=== PATIENT | female | born 1960 | race Caucasian/White ===

== ENCOUNTER 2017-08-14 10:43 | Inpatient (IN) | payer BC ==
[2017-08-14] VITALS (12 sets, daily range): BP systolic 88–133; BP diastolic 62–76; PULSE 73–97; RESP 16–24; TEMP 97.9–98.7; O2SAT 96–99
[~2017-08-14] VITALS: Ht 156.2 cm; Wt 54.5 kg
[2017-08-14] MEDS ORDERED: SODIUM CHLORIDE 0.9% FLUSH 10 ML FLUSH IVF PRN (11:15)
[2017-08-14] MEDS ORDERED: LORazepam 2 MG/ML VIAL IV PUSH ONE (11:15)
--- NOTE | 2017-08-14 11:24 | PD ---
HPI Chief Complaint: Cardiac Complaint Time Seen by Provider: 11:14 Travel History International Travel<30 days: No Contact w/Intl Traveler<30days: No Traveled to known affect area: No History of Present Illness HPI Patient is a 57-year-old female sent to emergency department presenting to the emergency department for evaluation of palpitations and increasing shortness of breath. Patient reports over the last 2 years she has had increasing shortness of breath, for the last several weeks she has had a gurgling sensation when she was lying down, she reports that she now gets short of breath even when brushing her teeth. She was sent by her primary doctor to cardiology for evaluation. 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 She was initially seen by Dr. Noriega in [place], she was referred to [place] to see Dr. Roxanne Grace. Patient currently denies any chest pain. Symptom onset was gradual, symptom severity is moderate to severe. There are no alleviating factors. Symptoms are exacerbated with activity. PFSH Past Medical History Depression: Yes High Cholesterol: Yes Diminished Hearing: No Insomnia: Yes Tetanus Vaccination: < 5 Years Influenza Vaccination: No ?: Not Past Surgical History Other Surgery: Yes (L knee ) Social History Alcohol Use: No Tobacco Use: No Substance Use: No Allergies-Medications (Allergen,Severity, Reaction): Coded Allergies: bacitracin (Verified Allergy, Mild, rash, 08/14/17) neomycin (Verified Allergy, Mild, rash, 08/14/17) polymyxin B (Verified Allergy, Mild, rash, 08/14/17) Review of Systems Except as stated in HPI: all other systems reviewed are Neg Cardiovascular: Positive: Palpitations, Dyspnea on exertion, No: Chest Pain or Discomfort Respiratory: Positive: Shortness of Breath Physical Exam Narrative GENERAL: Well-developed, well-nourished, alert female. Presenting in no acute distress. Appears anxious. SKIN: Warm and dry. HEAD: Atraumatic. Normocephalic. EYES: Pupils equal and round. No scleral icterus. No injection or drainage. ENT: No nasal bleeding or discharge. Mucous membranes pink and moist. NECK: Trachea midline. No JVD. CARDIOVASCULAR: Regular rate and rhythm. RESPIRATORY: No accessory muscle use. Clear to auscultation. Breath sounds equal bilaterally. GASTROINTESTINAL: Abdomen soft, non-tender, nondistended. Hepatic and splenic margins not palpable. MUSCULOSKELETAL: Extremities without clubbing, cyanosis, or edema. No obvious deformities. NEUROLOGICAL: Awake and alert. No obvious cranial nerve deficits. Motor grossly within normal limits. Five out of 5 muscle strength in the arms and legs. Normal speech. PSYCHIATRIC: Appropriate mood and affect; insight and judgment normal. Data Data Last Documented VS Vital Signs Date Time Temp Pulse Resp B/P (MAP) Pulse Ox O2 Delivery O2 Flow Rate FiO2 08/14/17 12:20 08/14/17 11:33 98 Nasal Cannula 2.00 08/14/17 11:30 73 18 08/14/17 10:50 98.6 Orders Orders Electrocardiogram (08/14/17 ) Electrocardiogram (08/14/17 11:14) B-Type Natriuretic Peptide (08/14/17 11:14) Ckmb (Isoenzyme) Profile (08/14/17 11:14) Complete Blood Count With Diff (08/14/17 11:14) Comprehensive Metabolic Panel (08/14/17 11:14) Magnesium (Mg) (08/14/17 11:14) Prothrombin Time / Inr (Pt) (08/14/17 11:14) Act Partial Throm Time (Ptt) (08/14/17 11:14) Troponin I (08/14/17 11:14) Chest, Single Ap (08/14/17 11:14) Ecg Monitoring (08/14/17 11:14) Bilateral Bp Monitoring (08/14/17 11:14) Iv Access Insert/Monitor (08/14/17 11:14) Oximetry (08/14/17 11:14) Oxygen Administration (08/14/17 11:14) Sodium Chloride 0.9% Flush (Ns Flush) (08/14/17 11:15) Lorazepam Inj (Ativan Inj) (08/14/17 11:15) Cardiac Catheterization (08/14/17 ) CKMB (08/14/17 11:05) CKMB% (08/14/17 11:05) Heparin-Ns/Pf Flush Bag (Heparin-Ns/Pf F (08/14/17 12:33) Midazolam Inj (Versed Inj) (08/14/17 12:33) Fentanyl Inj (Fentanyl Inj) (08/14/17 12:33) Verapamil Inj (Isoptin Inj) (08/14/17 12:34) Heparin Inj (Heparin Inj) (08/14/17 12:34) Nitroglycerin Inj (Nitroglycerin Inj) (08/14/17 12:34) Admit Order (Ed Use Only) (08/14/17 12:43) Labs Laboratory Tests Test 08/14/17 11:05 White Blood Count 6.3 TH/MM3 Red Blood Count 4.97 MIL/MM3 Hemoglobin 14.4 GM/DL Hematocrit 43.7 % Mean Corpuscular Volume 88.0 FL Mean Corpuscular Hemoglobin 29.0 PG Mean Corpuscular Hemoglobin Concent 33.0 % Red Cell Distribution Width 13.5 % Platelet Count 315 TH/MM3 Mean Platelet Volume 8.4 FL Neutrophils (%) (Auto) 52.8 % Lymphocytes (%) (Auto) 33.5 % Monocytes (%) (Auto) 10.9 % Eosinophils (%) (Auto) 2.2 % Basophils (%) (Auto) 0.6 % Neutrophils # (Auto) 3.3 TH/MM3 Lymphocytes # (Auto) 2.1 TH/MM3 Monocytes # (Auto) 0.7 TH/MM3 Eosinophils # (Auto) 0.1 TH/MM3 Basophils # (Auto) 0.0 TH/MM3 CBC Comment DIFF FINAL Differential Comment Prothrombin Time 9.7 SEC Prothromb Time International Ratio 1.0 RATIO Activated Partial Thromboplast Time 23.5 SEC Blood Urea Nitrogen 24 MG/DL Creatinine 0.90 MG/DL Random Glucose 99 MG/DL Total Protein 8.2 GM/DL Albumin 4.2 GM/DL Calcium Level 8.8 MG/DL Magnesium Level 2.4 MG/DL Alkaline Phosphatase 86 U/L Aspartate Amino Transf (AST/SGOT) 25 U/L Alanine Aminotransferase (ALT/SGPT) 27 U/L Total Bilirubin 0.4 MG/DL Sodium Level 141 MEQ/L Potassium Level 4.2 MEQ/L Chloride Level 103 MEQ/L Carbon Dioxide Level 26.9 MEQ/L Anion Gap 11 MEQ/L Estimat Glomerular Filtration Rate 64 ML/MIN Total Creatine Kinase 107 U/L Creatine Kinase MB 0.8 NG/ML Troponin I LESS THAN 0.02 NG/ML B-Type Natriuretic Peptide 123 PG/ML MDM Medical Decision Making Medical Screen Exam Complete: Yes Emergency Medical Condition: Yes Medical Record Reviewed: Yes Interpretation(s) Last Impressions Chest X-Ray 08/14/17 1114 Signed Impressions: Service Date/Time: July 11:19 - CONCLUSION: Minimal left basilar streakiness consistent with atelectasis and/or minimal infiltrate. Clinical correlation is recommended. Leoncio Ulloa MD Laboratory Tests Test 08/14/17 11:05 White Blood Count 6.3 TH/MM3 Red Blood Count 4.97 MIL/MM3 Hemoglobin 14.4 GM/DL Hematocrit 43.7 % Mean Corpuscular Volume 88.0 FL Mean Corpuscular Hemoglobin 29.0 PG Mean Corpuscular Hemoglobin Concent 33.0 % Red Cell Distribution Width 13.5 % Platelet Count 315 TH/MM3 Mean Platelet Volume 8.4 FL Neutrophils (%) (Auto) 52.8 % Lymphocytes (%) (Auto) 33.5 % Monocytes (%) (Auto) 10.9 % Eosinophils (%) (Auto) 2.2 % Basophils (%) (Auto) 0.6 % Neutrophils # (Auto) 3.3 TH/MM3 Lymphocytes # (Auto) 2.1 TH/MM3 Monocytes # (Auto) 0.7 TH/MM3 Eosinophils # (Auto) 0.1 TH/MM3 Basophils # (Auto) 0.0 TH/MM3 CBC Comment DIFF FINAL Differential Comment Prothrombin Time 9.7 SEC Prothromb Time International Ratio 1.0 RATIO Activated Partial Thromboplast Time 23.5 SEC Blood Urea Nitrogen 24 MG/DL Creatinine 0.90 MG/DL Random Glucose 99 MG/DL Total Protein 8.2 GM/DL Albumin 4.2 GM/DL Calcium Level 8.8 MG/DL Magnesium Level 2.4 MG/DL Alkaline Phosphatase 86 U/L Aspartate Amino Transf (AST/SGOT) 25 U/L Alanine Aminotransferase (ALT/SGPT) 27 U/L Total Bilirubin 0.4 MG/DL Sodium Level 141 MEQ/L Potassium Level 4.2 MEQ/L Chloride Level 103 MEQ/L Carbon Dioxide Level 26.9 MEQ/L Anion Gap 11 MEQ/L Estimat Glomerular Filtration Rate 64 ML/MIN Total Creatine Kinase 107 U/L Creatine Kinase MB 0.8 NG/ML Troponin I LESS THAN 0.02 NG/ML B-Type Natriuretic Peptide 123 PG/ML Vital Signs Date Time Temp Pulse Resp B/P (MAP) Pulse Ox O2 Delivery O2 Flow Rate FiO2 08/14/17 11:04 75 98 Room Air 08/14/17 10:50 98.6 79 17 133/76 (87) 99 Differential Diagnosis Myxoma versus congestive heart failure versus metabolic abnormality versus respiratory illness versus other Narrative Course Patient is a 57-year-old female presenting to the emergency department for evaluation of a large myxoma. Patient presents with medical records from her field artillery operations man Dr. Noriega. She had a 2D echo performed which shows ejection fraction of 60%. Mild mitral valve regurgitation, mildly elevated systolic pulmonary artery pressure, mild tricuspid valve regurgitation. Aortic valve sclerosis without stenosis. Mild aortic valve regurgitation. Left atrium has a myxoma measuring 5.5 x 5.3 x 4.2 which enters the left ventricle during diastole. Diastolic function appears normal. Discussed with Dr. Grace, patient will be kept n.p.o., she will be admitted to medicine. Labs and imaging ordered and pending. Initial EKG shows normal sinus rhythm with a rate of 72. Patient is very anxious, Ativan 0.5 mg IV 1 dose ordered. Patient was seen and evaluated in person by Dr. Grace, shortly thereafter patient was brought to the Computer Technologist. Labs reviewed, no acute findings identified. Chest x-ray shows basilar atelectasis. Findings discussed with Dr. Worrell who accepted admission. Admit orders placed. Diagnosis Primary Impression: Myxoma of heart Admitting Information Admitting Physician Requests: Admit Condition: Stable Sheri Knight Aug 14, 2017 11:24
[2017-08-14 11:51] LABS: AUTOMATED NEUTROPHIL # 3.3 TH/MM3 (1.8-7.7); BASOPHIL % 0.6 % (0.0-2.0); EOSINOPHIL # 0.1 TH/MM3 (0-0.4); EOSINOPHIL % 2.2 % (0.0-4.0); HEMATOCRIT 43.7 % (35.0-46.0); HEMOGLOBIN 14.4 GM/DL (11.6-15.3); LYMPH % 33.5 % (9.0-44.0); LYMPHOCYTE # 2.1 TH/MM3 (1.0-4.8); MEAN PLATELET VOLUME 8.4 FL (7.0-11.0); MONO % 10.9 % (0.0-8.0); MONOCYTE # 0.7 TH/MM3 (0-0.9); NEUT % 52.8 % (16.0-70.0); PLATELET COUNT 315 TH/MM3 (150-450); RED BLOOD COUNT 4.97 MIL/MM3 (4.00-5.30); RED CELL DISTRIBUTION WIDTH 13.5 % (11.6-17.2); WHITE BLOOD COUNT 6.3 TH/MM3 (4.0-11.0)
--- NOTE | 2017-08-14 11:59 | RADRPT ---
EXAM DATE/TIME: 08/14/2017 11:19 [facility] COMPARISON: No previous studies available for comparison. INDICATIONS : Short of breath MEDICAL HISTORY : SURGICAL HISTORY : None. ENCOUNTER: Initial ACUITY: 2 weeks PAIN SCORE: 0/10 LOCATION: Bilateral chest FINDINGS: Minimal left basilar streakiness is noted consistent with atelectasis and/or minimal infiltrate. Clin ical correlation is recommended. The heart is normal. The pulmonary vascular pattern is normal. CONCLUSION: Minimal left basilar streakiness consistent with atelectasis and/or minimal infiltrate. Clinical charity elation is recommended. Leoncio Ulloa MD on August 14, 2017 at 11:55 Board Certified Radiologist. This report was verified electronically.
[2017-08-14 12:00] LABS: PROTHROMBIN TIME - PATIENT 9.7 SEC (9.8-11.6)
[2017-08-14 12:15] LABS: ALBUMIN 4.2 GM/DL (3.4-5.0); ALT (GPT) 27 U/L (10-53); AST (GOT) 25 U/L (15-37); BICARBONATE 26.9 MEQ/L (21.0-32.0); BLOOD UREA NITROGEN 24 MG/DL (7-18); CALCIUM 8.8 MG/DL (8.5-10.1); CHLORIDE 103 MEQ/L (98-107); GLOMERULAR FILTRATION RATE 64 ML/MIN (>89); GLUCOSE,RANDOM 99 MG/DL (74-106); MAGNESIUM 2.4 MG/DL (1.5-2.5); SODIUM (NA) 141 MEQ/L (136-145)
[2017-08-14 12:19] LABS: ALKALINE PHOSPHATASE 86 U/L (45-117); TOTAL BILIRUBIN ADULT 0.4 MG/DL (0.2-1.0); TOTAL PROTEIN 8.2 GM/DL (6.4-8.2); TROPONIN I LESS THAN 0.02 NG/ML (0.02-0.05)
[2017-08-14] MEDS ORDERED: HEPARIN-NS/PF FLUSH BAG 2,000 ML IV FLUSH ONE (12:33)
[2017-08-14] MEDS ORDERED: MIDAZOLAM HCL 2 MG/2 ML VIAL ONE (12:33)
[2017-08-14] MEDS ORDERED: VERAPAMIL HCL 5 MG/2 ML VIAL ONE (12:34)
[2017-08-14] MEDS ORDERED: HEPARIN SODIUM - IV 10,000 UNITS/10 ML VIAL ONE (12:34)
[2017-08-14] MEDS ORDERED: NITROGLYCERIN INJ 5 ML ONE (12:34)
[2017-08-14] MEDS ORDERED: LACTULOSE SYRUP 20 GM/30 ML CUP PO PRN (12:45)
[2017-08-14] MEDS ORDERED: SODIUM CHLORIDE 0.9% FLUSH 10 ML FLUSH IV FLUSH PRN ×2 (12:45→16:15)
[2017-08-14] MEDS ORDERED: ACETAMINOPHEN 325 MG TAB PO PRN (12:45)
[2017-08-14] MEDS ORDERED: SENNOSIDES 8.6 MG TAB PO PRN (12:45)
[2017-08-14] MEDS ORDERED: ONDANSETRON HCL 4 MG/2 ML VIAL IVP PRN (12:45)
[2017-08-14] MEDS ORDERED: BISACODYL 10 MG SUPP RECTAL PRN (12:45)
[2017-08-14] MEDS ORDERED: NALOXONE HCL 0.4 MG/ML AMP IV PUSH PRN (12:45)
--- NOTE | 2017-08-14 12:52 | HHI.HP ---
[facility] Britney Pratt MD Admission Diagnosis MYXOMA Diagnoses: Chief Complaint: Shortness of breath Travel History International Travel<30 Days: No Contact w/Intl Traveler <30 Da: No Traveled to Known Affected Are: No History of Present Illness I have been called from ER by STRAIGHT RULING MACHINE OPERATOR due to that the patient was sent from [place] by Doctor Hari due to Cardiac Mixoma she started with Palpitations and increasing shortness of breath. Patient reports over the last 2 years she has had increasing shortness of breath, for the last several weeks she has had a gurgling sensation when she was lying down, she reports that she now gets short of breath even when brushing her teeth. She was sent by her primary doctor to cardiology for evaluation. 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 She was initially seen by Dr. Noriega in [place], she was referred to [place] to see Dr. Roxanne Grace. Patient currently denies any chest pain. Symptom onset was gradual, symptom severity is moderate to severe. There are no alleviating factors. Symptoms are exacerbated with activity. The patient is been symptomatic for the last two years, she though was related to the weather of deconditioning, but six months ago was worsening until the point three moths ago she was not able to handle small weights or walking, she was seen by PCP and then by Cardiology and sent today for evaluation and Cardiothoracic surgery. Doctor Hodge will perform Median Sternotomy, excision of left atrial Myxoma. scheduled for 08/18/17 Review of Systems Constitutional: DENIES: Fever, Chills, Change in appetite Endocrine: DENIES: Heat/cold intolerance Eyes: DENIES: Blurred vision, Eye pain Respiratory: COMPLAINS OF: Shortness of breath Except as stated in HPI: all other systems reviewed are Neg Past Family Social History Past Medical History Depression Hyperlipidemia Insomnia Past Surgical History Left knee surgery Reported Medications Reported Meds & Active Scripts Active Reported Rosuvastatin (Rosuvastatin Calcium) 5 Mg Tab 5 Mg PO DAILY Escitalopram (Escitalopram Oxalate) 5 Mg Tab 5 Mg PO DAILY Hydrocodone-Acetaminophen 5-325 mg Tab 1 Tab PO Q6H PRN Lasix (Furosemide) 20 Mg Tab 20 Mg PO DAILY Progesterone Micronized 100 Mg Cap 100 Mg PO DAILY Estrace (Estradiol) 1 Mg Tab 1 Mg PO DAILY Ambien (Zolpidem Tartrate) 5 Mg Tab 5 Mg PO HS PRN Aspirin DR (Aspirin) 81 Mg Tabdr 81 Mg PO DAILY Allergies: Coded Allergies: bacitracin (Verified Allergy, Mild, rash, 08/14/17) neomycin (Verified Allergy, Mild, rash, 08/14/17) polymyxin B (Verified Allergy, Mild, rash, 08/14/17) Active Ordered Medications Current Medications Medications (Trade) Dose Ordered Sig/Melody Route Start Time Stop Time Status Last Admin Sodium Chloride 1,000 ml @ 100 mls/hr Q10H IV 08/14/17 12:44 (NS Flush) 2 ml UNSCH PRN IV FLUSH 08/14/17 12:45 (NS Flush) 2 ml BID IV FLUSH 08/14/17 21:00 (Tylenol) 650 mg Q4H PRN PO 08/14/17 12:45 (Zofran Inj) 4 mg Q6H PRN IVP 08/14/17 12:45 (Narcan Inj) 0.4 mg UNSCH PRN IV PUSH 08/14/17 12:45 (Senokot) 17.2 mg Q12H PRN PO 08/14/17 12:45 (Dulcolax Supp) 10 mg DAILY PRN RECTAL 08/14/17 12:45 (Lactulose Liq) 30 ml DAILY PRN PO 08/14/17 12:45 (NS Flush) 2 ml BID IV FLUSH 08/14/17 21:00 UNV (NS Flush) 2 ml UNSCH PRN IV FLUSH 08/14/17 16:15 UNV Cefazolin Sodium 500 mg/Sodium Chloride 505 ml @ 0 mls/hr FLEET OPERATIONS MANAGER IRRIGATION 08/14/17 16:15 08/21/17 16:14 UNV Cefazolin Sodium/ Dextrose 50 ml @ 150 mls/hr FLEET OPERATIONS MANAGER IV 08/14/17 16:15 08/21/17 16:14 UNV (Lopressor) 12.5 mg FLEET OPERATIONS MANAGER PO 08/14/17 16:15 08/21/17 16:14 UNV (Hibiclens 4% Top Soln) 1 applic FLEET OPERATIONS MANAGER TOPICAL 08/14/17 16:15 08/21/17 16:14 UNV Insulin Human Regular 100 units/ Sodium Chloride 100 ml @ 3 mls/hr TITRATE PRN IV 08/14/17 16:15 08/21/17 16:14 UNV (D50w (Vial) Inj) 50 ml UNSCH PRN IV PUSH 08/14/17 16:15 UNV Family History Father with DM II, Mother with CAD and stroke. Social History No Toxic habits. Physical Exam Vital Signs Vital Signs Date Time Temp Pulse Resp B/P (MAP) Pulse Ox O2 Delivery O2 Flow Rate FiO2 08/14/17 12:20 08/14/17 11:33 98 Nasal Cannula 2.00 08/14/17 11:30 73 18 116/64 (81) 99 Room Air 08/14/17 11:30 74 18 116/64 (81) 99 Room Air 08/14/17 11:13 76 18 127/75 (92) 98 Room Air 08/14/17 11:13 75 24 127/75 (92) 99 Room Air 08/14/17 11:04 75 98 Room Air 08/14/17 10:50 98.6 79 17 133/76 (95) 99 Physical Exam GENERAL: Well-developed, well-nourished, alert female. Presenting in no acute distress. Appears anxious. SKIN: Warm and dry. HEAD: Atraumatic. Normocephalic. EYES: Pupils equal and round. No scleral icterus. No injection or drainage. ENT: No nasal bleeding or discharge. Mucous membranes pink and moist. NECK: Trachea midline. No JVD. CARDIOVASCULAR: Regular rate and rhythm. RESPIRATORY: No accessory muscle use. Clear to auscultation. Breath sounds equal bilaterally. GASTROINTESTINAL: Abdomen soft, non-tender, nondistended. Hepatic and splenic margins not palpable. MUSCULOSKELETAL: Extremities without clubbing, cyanosis, or edema. No obvious deformities. NEUROLOGICAL: Awake and alert. No obvious cranial nerve deficits. Motor grossly within normal limits. Five out of 5 muscle strength in the arms and legs. Normal speech. PSYCHIATRIC: Appropriate mood and affect; insight and judgment normal. Laboratory Laboratory Tests Test 08/14/17 11:05 White Blood Count 6.3 Red Blood Count 4.97 Hemoglobin 14.4 Hematocrit 43.7 Mean Corpuscular Volume 88.0 Mean Corpuscular Hemoglobin 29.0 Mean Corpuscular Hemoglobin Concent 33.0 Red Cell Distribution Width 13.5 Platelet Count 315 Mean Platelet Volume 8.4 Neutrophils (%) (Auto) 52.8 Lymphocytes (%) (Auto) 33.5 Monocytes (%) (Auto) 10.9 Eosinophils (%) (Auto) 2.2 Basophils (%) (Auto) 0.6 Neutrophils # (Auto) 3.3 Lymphocytes # (Auto) 2.1 Monocytes # (Auto) 0.7 Eosinophils # (Auto) 0.1 Basophils # (Auto) 0.0 CBC Comment DIFF FINAL Differential Comment Prothrombin Time 9.7 Prothromb Time International Ratio 1.0 Activated Partial Thromboplast Time 23.5 Blood Urea Nitrogen 24 Creatinine 0.90 Random Glucose 99 Total Protein 8.2 Albumin 4.2 Calcium Level 8.8 Magnesium Level 2.4 Alkaline Phosphatase 86 Aspartate Amino Transf (AST/SGOT) 25 Alanine Aminotransferase (ALT/SGPT) 27 Total Bilirubin 0.4 Sodium Level 141 Potassium Level 4.2 Chloride Level 103 Carbon Dioxide Level 26.9 Anion Gap 11 Estimat Glomerular Filtration Rate 64 Total Creatine Kinase 107 Creatine Kinase MB 0.8 Troponin I LESS THAN 0.02 B-Type Natriuretic Peptide 123 Result Diagram: 08/14/17 1105 08/14/17 1105 Imaging Last Impressions Chest X-Ray 08/14/17 1114 Signed Impressions: Service Date/Time: July 11:19 - CONCLUSION: Minimal left basilar streakiness consistent with atelectasis and/or minimal infiltrate. Clinical correlation is recommended. Leoncio Ulloa MD Caprini VTE Risk Assessment Caprini VTE Risk Assessment: Mod/High Risk (score >= 2) Caprini Risk Assessment Model Point Value = 1 Point Value = 2 Point Value = 3 Point Value = 5 Age 41-60 Minor surgery BMI > 25 kg/m2 Swollen legs Varicose veins or History of unexplained or recurrent spontaneous Oral contraceptives or hormone replacement Sepsis (< 1 month) Serious lung disease, including pneumonia (< 1 month) Abnormal pulmonary function Acute myocardial infarction Congestive heart failure (< 1 month) History of inflammatory bowel disease Medical patient at bed rest Age 61-74 Arthroscopic surgery Major open surgery (> 45 min) Laparoscopic surgery (> 45 min) Malignancy Confined to bed (> 72 hours) Immobilizing plaster cast Central venous access Age >= 75 History of VTE Family history of VTE Factor V Leiden Prothrombin [id number] Lupus anticoagulant Anticardiolipin antibodies Elevated serum homocysteine Heparin-induced thrombocytopenia Other congenital or acquired thrombophilia Stroke (< 1 month) Elective arthroplasty Hip, pelvis, or leg fracture Acute spinal cord injury (< 1 month) Prophylaxis Regimen Total Risk Factor Score Risk Level Prophylaxis Regimen 0-1 Low Early ambulation 2 Moderate Order ONE of the following: *Sequential Compression Device (SCD) *Heparin 5000 units SQ BID 3-4 Higher Order ONE of the following medications: *Heparin 5000 units SQ TID *Enoxaparin/Lovenox 40 mg SQ daily (WT < 150 kg, CrCl > 30 mL/min) *Enoxaparin/Lovenox 30 mg SQ daily (WT < 150 kg, CrCl > 10-29 mL/min) *Enoxaparin/Lovenox 30 mg SQ BID (WT < 150 kg, CrCl > 30 mL/min) AND/OR *Sequential Compression Device (SCD) 5 or more Highest Order ONE of the following medications: *Heparin 5000 units SQ TID (Preferred with Epidurals) *Enoxaparin/Lovenox 40 mg SQ daily (WT < 150 kg, CrCl > 30 mL/min) *Enoxaparin/Lovenox 30 mg SQ daily (WT < 150 kg, CrCl > 10-29 mL/min) *Enoxaparin/Lovenox 30 mg SQ BID (WT < 150 kg, CrCl > 30 mL/min) AND *Sequential Compression Device (SCD) Assessment and Plan Assessment and Plan Large Myxoma Patient presents with medical records from her order desk caller Dr. Noriega. She had a 2D echo performed which shows ejection fraction of 60%. Mild mitral valve regurgitation, mildly elevated systolic pulmonary artery pressure, mild tricuspid valve regurgitation. Aortic valve sclerosis without stenosis. Mild aortic valve regurgitation. Left atrium has a myxoma measuring 5.5 x 5.3 x 4.2 which enters the left ventricle during diastole. Diastolic function appears normal. evaluation and Cardiothoracic surgery. Doctor Naveen will perform Median Sternotomy, excision of left atrial Myxoma. scheduled for 08/18/17 Hyperlipidemia to continue Rosuvastatin Depression to continue escitalopram. Insomnia continue Zolpidem as needed. DVT prophylaxis as per Cardiology Code Status Full Code. Discussed Condition With Sheri Knight Physician Certification 2 Midnight Certification Type: Admission for Inpatient Services Order for Inpatient Services The services are ordered in accordance with Medicare regulations or non- Medicare payer requirements, as applicable. In the case of services not specified as inpatient-only, they are appropriately provided as inpatient services in accordance with the 2-midnight benchmark. Estimated LOS (days): 3 days is the estimated time the patient will need to remain in the hospital, assuming treatment plan goals are met and no additional complications. Post-Hospital Plan: Not yet determined Yury Morocho MD Aug 14, 2017 12:52
--- NOTE | 2017-08-14 13:57 | CATHPROC ---
[employer] HIS Report Study Information Study Number Admission Scheduled Start Study Start [id number] Aug 14 2017 10:43AM 08/14/2017 Aug 14 2017 12:12PM [place] [facility] Cardiac Catheterization Admit Source Facility Department Emergency department [facility] - Base Filler Operator Physician and Clinical Staff Initial Adam Hagen Doughnut Machine Operator Marty Cortes,PARI Recorder Nahed Ontiveros,CLAY PROCESSING LABOURER TECH2 Scrub Clarence Monzon RCIS(BS) Procedures Performed Procedure Location (Site) Vessel Name Coronary Angiograms LCA Left Coronary Coronary Angiograms RCA Right Coronary Wire insertion Radial (right) Radial Art. Equipment Time Neurophysiology Tech Description Size Mfg Part Number Used/Scraped CATHETER, FR5 SWAN HALEY 12:29 SHEPPARD Telormedix FR 5 [id number] *[id number] Used MONITOR TRANSDUCER, TRUWAVE [id number] 12:28 SHEPPARD RODGERS * Used W/STOCKCOCK *[id number] 534-518T *[id number] 534-521T *[id number] 12:28 Rentamus INDUSTRIES PACK, CCL CUSTOM * Used *[id number] BAND, RADIAL COMPRESSION TR [id number] 13:38 [employer]grazing MEDICAL 24CM Used SHORT 24 *[id number] 12:28 [employer] MEDICAL WIRE, 3MMJ .035 180CM 180CM Used *[id number] 12:28 NAMIC MANIFOLD, 4 PORT * Used *[id number] 12:28 NYCOMED OMNIPAQUE, 350 MG, 150ML 150ML [id number] Used [id number] 12:28 CHOU MEDICAL BLANKET,WARM AIR CCL * Used *[id number] 13:11 TERUMO MEDICAL SHEATH, FR5 TERUMO (10CM) FR 5 Used *[id number] 13:18 TERUMO MEDICAL SHEATH, FR6 TERUMO (10CM) FR 6 Used *[id number] SHEATH, FR6 TRANSRADIAL RM*[id number] 12:59 TERUMO MEDICAL FR 6 Used SLENDER 10CM *[id number] History: Allergies Allergy Reaction neomycin rash bacitracin rash polymyxin B rash History: Risk Factors Family History of Hypertension Dyslipidemia Previous IA Previous Heart Failure Premature CAD No Yes No No No Prior Valve Prior PCI Prior CABG Surgery No No No Cerebrovascular Peripheral Artery Chronic Lung On Dialysis Diabetes Disease Disease Disease No No No No No History: Symptoms/Diagnosis Selection Items SOB History: Stress Tests Stress or Imaging Studies Performed No History: Other Current Smoker No Labs Hgb (g/dl) Hct (%) RBC (MIL/MM3) WBC (l/cumm) Platelets (thousands) 11.60-17.00 35.00-51.00 4.00-5.90 4.00-11.00 150.00-450.00 14.4 43.7 4.9 6.3 315 Glucose (mg/dl) BUN (mg/dl) Creatinine (mg/dl) BUN:Creatinine (1:x) 74.00-106.00 7.00-18.00 0.50-1.30 10.00-20.00 99 24 0.9 26.7 Na (meq/l) K (meq/l) Cl (meq/l) CO2 (mmol/L) Ca (mg/dl) 136.00-145.00 3.50-5.10 98.00-107.00 21.00-32.00 8.50-10.10 141 4.2 103 26.9 8.8 PT (sec) PTT (sec) INR (PTT:PT) 9.80-11.60 24.30-30.10 0.90-1.10 9.7 23.5 1 Troponin I (ng/ml) CPK-MB (ng/ML) 0.02-0.05 0.50-3.60 0.02 0.8 Medication Medication Total Dose (Bolus/Oral) Medication Total Dosage/Unit 1% XYLOCAINE 40 mL FENTANYL 50 mcg RADIAL COCKTAIL 5 mL (Bolus) Medications (Bolus/Oral) Medication Time Given Dosage/Unit Administered By Reason FENTANYL 08/14/2017 12:55:08 PM 50 mcg Marty Cortes 50 mcg FENTANYL given in lab by Marty Cortes, RN in Right Forearm via Peripheral IV. Ordered by Adam Joseph 1% XYLOCAINE 08/14/2017 12:57:29 PM 10 mL Adam Grace 10 mL 1% XYLOCAINE given in lab by Adam Grace in Right Radial via Subcutaneous. Ordered by Adam Cox RADIAL COCKTAIL 08/14/2017 12:59:28 PM 5 mL (Bolus) Adam Grace 5 mL (Bolus) RADIAL COCKTAIL given in lab by Adam Grace via Radial. Using [Solution Name]. O rdered by Adam Grace. 200 nitro, 2200 heparin, .5 verapamil 1% XYLOCAINE 08/14/2017 1:02:02 PM 10 mL Adam Grace 10 mL 1% XYLOCAINE given in lab by Adam Grace in Right Arm via Subcutaneous. Ordered by Adam Love 1% XYLOCAINE 08/14/2017 1:12:34 PM 20 mL Adam Grace 20 mL 1% XYLOCAINE given in lab by Adam Grace in Right Groin via Subcutaneous. Ordered by Adam Schwartz Medication (Drip) Medication Time Given Dosage/Unit Concentration/Unit Diluent (ml) Solutio n IV Solutions 08/14/2017 12:29:23 PM 0 mL (IV) 500 NaCl .9 IV Solutions given in lab by Marty Cortes, PARI in Right Forearm via Peripheral IV. Pump/Drip Flow = 20 ml/hr using NaCl .9. Initial Case Assessment Cardiovascular HR Rhythm NIBP Chest Pain 80 Sinus 124/74 0 Edema Present Skin color Skin None Normal Warm Dry Circulatory - Right Pulses Dorsalis Pedis Femoral Radial 3 3 3 Scale (0,1,2,3,4,d) Circulatory - Left Pulses Dorsalis Pedis Femoral Radial 3 3 Scale (0,1,2,3,4,d) Neurological State Oriented to time-place- Alert Moves all extremities person Respiration - General Respiration Rate SpO2 (%) O2 (lpm) (B/min) 17 97 0 Final Case Assessment Cardiovascular HR Rhythm NIBP Chest Pain 79 Sinus 112/64 0 Edema Present Skin color Skin None Normal Warm Dry Circulatory - Right Pulses Dorsalis Pedis Femoral Radial 3 3 3 Scale (0,1,2,3,4,d) Circulatory - Left Pulses Dorsalis Pedis Femoral Radial 3 3 Scale (0,1,2,3,4,d) Neurological State Oriented to time-place- Alert Moves all extremities person Respiration - General Respiration Rate SpO2 (%) O2 (lpm) (B/min) 15 95 0 Chronological Log Time Study Chronological Log 12:24:44 Patient arrived via Bed. 12:24:49 Patient Name, D.O.B, / Armband Verified By R.N. 12:24:50 Consent signed by the physician and the patient and verified by the Base Filler Operator staff. 12:24:50 Pre-op and post- op instructions given; patient acknowledges understanding of instructions. 12:24:51 Verbal Stimulation=2 Physical Stimulation=2 Airway=2 Respiration=2 TOTAL=8. (0=absent, 1=li mited, 2=present) 12:25:00 Presedation assessment performed by Base Filler Operator RN. 12:25:03 Allens test performed on the right radial and ulnar artery. 12:25:20 Patient has been NPO for Less than 6Hrs. 12:25:55 Skin Breakdown- none per patient. 12:26:00 Patient Warmer Placed on the Table. 12:26:01 [place] Prominences Protected 12:26:03 A # 20 IV was noted in the Forearm (right). Grade = 0 Vitals capture started with the following parameters, Patient=Adult, Interval=5 min, Initial Pr glzjtl=691 mmHg, 12:29:12 Deflation Rate=5 mmHg, Cuff placed on Left Leg IV Solutions given in lab by Marty Cortes RN in Right Forearm via Peripheral IV. Pump/Drip F low = 20 ml/hr using NaCl 12:29:23 .9. 12:29:46 History and physical on the chart or being dictated. Assessment: Initial Case, HR=80 BPM, Rhythm=Sinus, MXUJ=559/74 mmhg, Chest Pain=0, Edema=None, Color=Normal, Skin = Warm, Dry Right Pulses: Willam Ped=3, Femoral=3, Radial=3 12:29:47 Left Pulses: Willam Ped=3, Femoral=3 Neurological: State=Alert, Ox3, FLANNERY Respiration: Resp=17 B/min, SpO2=97 %, O2=0 lpm 12:29:55 HR=84 bpm, GPAM=632/74 mmhg, Resp=15 B/min, Pain=0, Pernell=10, Conway=2 12:30:54 Reference ECG taken 12:34:48 HR=71 bpm, DIGB=749/66 mmhg, SpO2=97.0 %, Resp=15 B/min, Pain=0, Pernell=10, Conway=2 12:39:47 HR=75 bpm, SZBQ=735/70 mmhg, SpO2=98.0 %, Resp=16 B/min, Pain=0, Pernell=10, Conway=2 12:44:48 HR=77 bpm, MJYE=206/67 mmhg, SpO2=98.0 %, Resp=16 B/min, Pain=0, Pernell=10, Conway=2 12:49:05 Pressure channel 1 zeroed. 12:49:49 HR=74 bpm, HHDB=587/59 mmhg, SpO2=98.0 %, Resp=17 B/min, Pain=0, Pernell=10, Conway=2 12:54:48 HR=72 bpm, VKLX=417/66 mmhg, SpO2=99.0 %, Resp=15 B/min, Pain=0, Pernell=10, Conway=2 12:55:08 50 mcg FENTANYL given in lab by Marty Cortes, PARI in Right Forearm via Peripheral IV. Orde red by Adam Grace. Time Out. Correct patient, correct procedure, correct physician, power injector loaded, or not loaded with contrast with 12:55:47 surgical team present. Time Out Concurred by MD and individual staff in procedure. 12:56:05 Case Start 10 mL 1% XYLOCAINE given in lab by Adam Grace in Right Radial via Subcutaneous. Ordere d by Sanjay, 12:57:29 Adam Hernandes 12:58:46 Access site was Radial Artery. A SHEATH, FR6 TRANSRADIAL SLENDER 10CM FR 6 was advanced into the Radial (right) using the Kim fied Seldinger 12:58:54 technique. 5 mL (Bolus) RADIAL COCKTAIL given in lab by Adam Grace via Radial. Using [Solution Na me]. Ordered by 12:59:28 Adam Grace 200 nitro, 2200 heparin, .5 verapamil 12:59:47 HR=92 bpm, DRPC=677/62 mmhg, SpO2=97 %, Resp=10 B/min, Pain=0, Pernell=10, Conway=2 10 mL 1% XYLOCAINE given in lab by Adam Grace in Right Arm via Subcutaneous. Ordered madonna Grace, 13:02:02 Adam Hernandes 13:04:48 HR=84 bpm, JKMJ=225/62 mmhg, SpO2=92.0 %, Resp=13 B/min, Pain=0, Pernell=10, Conway=2 13:09:47 HR=85 bpm, CMJD=058/63 mmhg, SpO2=94 %, Resp=13 B/min, Pain=0, Pernell=10, Conway=2 20 mL 1% XYLOCAINE given in lab by Adam Grace in Right Groin via Subcutaneous. Ordered by Sanjay, 13:12:34 Adam Workman. 13:14:48 HR=80 bpm, VFBY=185/66 mmhg, SpO2=95.0 %, Resp=17 B/min, Pain=0, Pernell=10, Conway=2 13:15:44 Access site was Right Femoral Vein. 13:16:36 A SHEATH, FR5 TERUMO (10CM) FR 5 was advanced into the Fem Vein (right) using the Modified Seldinger technique. A SHEATH, FR6 TERUMO (10CM) FR 6 was exchanged in the Fem Vein (right). This was necessary in o rder to 13:17:42 accomodate a larger catheter. 13:18:14 A CATHETER, FR5 SWAN HALEY MONITOR FR 5 was inserted via Fem Vein (right) 13:19:51 HR=80 bpm, VOPH=504/66 mmhg, SpO2=97.0 %, Resp=17 B/min, Pain=0, Pernell=10, Conway=2 Recorded Pressure: PCW, HR=82, Condition=Condition 1 13:21:07 (Pulmonary Capillary Wedge) PCW 37/36/36 Recorded Pressure: MPA, HR=79, Condition=Condition 1 13:22:57 (Main Pulmonary Artery) MPA 54/18/34 13:24:48 HR=76 bpm, VXJI=202/66 mmhg, SpO2=96 %, Resp=15 B/min, Pain=0, Pernell=10, Conway=2 13:24:53 Saturation: Site=Ao (Aorta) , O2=96.2 %, Hgb=14.4 gm/dl, Condition=Condition 1. Used in [facility] culation. Recorded Pressure: RV, HR=79, Condition=Condition 1 13:25:05 (Right Ventricle) RV 50/1/5 13:27:42 Saturation: Site=RV (Right Ventricle) , O2=80.6 %, Hgb=14.4 gm/dl, Condition=Condition 1. U sed in calculation. Recorded Pressure: RA, HR=76, Condition=Condition 1 13:27:51 (Right Atrium) RA 5/3/2 13:28:40 Saturation: Site=PA (Pulmonary Artery) , O2=79 %, Hgb=14.4 gm/dl, Condition=Condition 1. Us ed in calculation. 13:28:59 Saturation: Site=RA (Right Atrium) , O2=75.9 %, Hgb=14.4 gm/dl, Condition=Condition 1. Used in calculation. 13:29:50 HR=77 bpm, OGMS=923/66 mmhg, SpO2=99.0 %, Resp=16 B/min, Pain=0, Pernell=10, Conway=2 13:29:52 [place] Haley Catheter Removed Recorded Pressure: LV, HR=79, Condition=Condition 1 13:30:03 (Left Ventricle) LV 112/3/7 Recorded Pressure: LV, Ao, HR=79, Condition=Condition 1 13:30:17 (Left Ventricle) LV 111/0/8, (Aorta) Ao 107/59/80 13:32:11 The RCA was injected and visualized at various angles. OMNIPAQUE, 350 MG, 150ML 150ML used . After removing the current catheter a JL 3.5 INFINITI CATHETER FR 5 was advanced over a WIRE, 3 MMJ .035 180CM 13:32:19 180CM. Recorded Pressure: Ao, HR=79, Condition=Condition 1 13:33:41 (Aorta) Ao 97/57/73 13:34:25 The LCA was injected and visualized at various angles. OMNIPAQUE, 350 MG, 150ML 150ML used . 13:34:38 A WIRE, 3MMJ .035 180CM 180CM was inserted via Radial (right). 13:34:53 HR=88 bpm, ZDVK=594/65 mmhg, SpO2=97.0 %, Resp=19 B/min, Pain=0, Pernell=10, Conway=2 13:34:56 Catheter was removed 13:35:33 Case End 13:36:42 Catheter(s) removed without difficulty Radial Compression Device Used. 12 mLs of air placed in BAND, RADIAL COMPRESSION TR SHORT 24 24 CM. Affected 13:37:34 hand 96 % O2 saturation. 13:37:56 No case complications noted. 13:37:57 Cine recording checked. 13:38:00 Bedside Report will be given. 13:38:06 A Left and Right Heart Cath was performed. 13:39:50 HR=79 bpm, LYWF=374/64 mmhg, SpO2=95 %, Resp=15 B/min, Pain=0, Pernell=10, Conway=2 13:41:17 VENOUS Sheath removed; pressure applied to access site. Assessment: Final Case, HR=79 BPM, Rhythm=Sinus, HURP=437/64 mmhg, Chest Pain=0, Edema=None, Color=Normal, Skin = Warm, Dry Right Pulses: Willam Ped=3, Femoral=3, Radial=3 13:49:54 Left Pulses: Willam Ped=3, Femoral=3 Neurological: State=Alert, Ox3, FLANNERY Respiration: Resp=15 B/min, SpO2=95 %, O2=0 lpm 13:53:39 Sterile dressing applied to site 13:53:40 No case complications noted. 13:53:42 Cine recording checked. 13:57:13 Patient moved to [facility] End Study - Contrast Media Used In Study Contrast Total Opened (mL) Total Used (mL) Total Wasted (mL) Omnipaque 40 40 0 End Study - Maximum Contrast Load Max Contrast Load (mL) 311.1 End Study - Radiation Exposure Fluoro Time (minutes) 2.7 End Study - Patient Disposition Complications Transferred To Telemetry Bed
[2017-08-14] MEDS ORDERED: MISC INFORMATION XX ONE ×2 (14:00)
[2017-08-14] MEDS ORDERED: IOHEXOL 350 MG/ML 50 ML BTL (for Cath Lab) OTHER ONE (14:03)
[2017-08-14] MEDS ORDERED: ECASA81 PO (15:06)
[2017-08-14] MEDS ORDERED: ESCI5TAB PO (15:14)
[2017-08-14] MEDS ORDERED: FURO1TAB62 PO (15:14)
[2017-08-14] MEDS ORDERED: ESTR1 PO (15:14)
[2017-08-14] MEDS ORDERED: AMBI5TAB PO (15:14)
[2017-08-14] MEDS ORDERED: ROSU1TAB4 PO (15:14)
[2017-08-14] MEDS ORDERED: HYDR-3516 PO (15:14)
[2017-08-14] MEDS ORDERED: PROG100C PO (15:14)
[2017-08-14] MEDS ORDERED: METOPROLOL TARTRATE 25 MG TAB PO SCH (16:15)
[2017-08-14] MEDS ORDERED: DEXTROSE 50% IN WATER 50 ML VIAL(D50) IV PUSH PRN (16:15)
[2017-08-14] MEDS ORDERED: INSULIN REGULAR (IV INFUSION) 100 UNITS in SODIUM CHLORIDE 0.9% INJ 99 ML IV PRN (16:15)
[2017-08-14] MEDS ORDERED: CHLORHEXIDINE GLUCONATE 4% SOLN 120 ML BTL TOPICAL SCH (16:15)
[2017-08-14] MEDS ORDERED: CEFAZOLIN INJ 500 MG in SODIUM CHLORIDE 0.9% IRR BTL 500 ML IRRIGATION SCH (16:15)
--- NOTE | 2017-08-14 17:14 | MB ---
cc: Ann Shepard Jacqueline R ARNP DATE OF CONSULT: 08/14/2017 HISTORY OF PRESENT ILLNESS: This is a 57-year-old very pleasant female who was referred to Dr. Grace from Dr. Adria Noriega. Apparently, has been having some shortness of breath off and on for the past 2 years, increasing over the last 6 months and becoming more noticeable in the past couple weeks. 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 She has also noticed some gurgling in her chest. She has had a mild cough, occasional wheeze. No fevers or chills. She underwent an echocardiogram by Dr. Noriega which showed a myxoma measuring 5 x 5 x 5.3 x 4 x 2, enters the left ventricle during diastole and arises from the intraarterial septum. There was also some mild aortic regurgitation, mild mitral regurgitation, mild tricuspid regurgitation, ejection fraction of 60%. The patient was then referred to our Emergency Department for admission and evaluation by Dr. Grace. The patient underwent cardiac catheterization today, which showed nonobstructive coronary disease, ejection fraction of 60%, right atrial pressures of 3, PA pressure 54/18, wedge pressure 36. 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 PAST MEDICAL HISTORY: Hyperlipidemia, diverticulosis, colon polyp, actinic keratosis, anxiety, insomnia. She has had history of some mild spinal stenosis, radiculopathy, macular degeneration. She has had left knee arthroscopic surgery. ALLERGIES: BACITRACIN, NEOMYCIN, POLYMYXIN. FAMILY HISTORY: Mother from diabetes and a stroke, father from a subarachnoid hemorrhage. 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 No tobacco or alcohol. She walks on a regular basis. REVIEW OF SYSTEMS: All 12 systems negative other than what is in the H and P. PHYSICAL EXAMINATION: VITAL SIGNS: Blood pressure 116/60, heart rate of 70, O2 saturation 99 on room air, afebrile. GENERAL: The patient is awake, alert, in no acute distress. HEENT: Head is normocephalic, atraumatic. Pupils equal and reactive. Oral mucosa pink, moist. NECK: Supple. No JVD. HEART: Sounds S1, S2. Regular rate and rhythm. No audible rubs. Positive for a 2/6 systolic murmur. No rubs or gallops. LUNGS: Clear to auscultation. No wheezes, rales or rhonchi. ABDOMEN: Soft, nontender, no masses. No organomegaly. EXTREMITIES: No cyanosis, clubbing, or edema. LABORATORY DATA: Shows hemoglobin 14, hematocrit of 43, white cell count of 6.3, platelet count of 315. Sodium 141, potassium 4.2, BUN of 24, creatinine 0.9. Troponin is negative. INR 1.0. IMAGING STUDIES: Chest x-ray - minimal left basal streakiness consistent with some atelectasis. ASSESSMENT AND PLAN: This is a 57-year-old female, patient of Dr. Britney Pratt, Dr. Adria Noreiga, Dr. Grace, who underwent an echocardiogram for her dyspnea, which showed a sizable left atrial myxoma. She is being evaluated by Dr. Hodge for a median sternotomy, excision of left atrial myxoma, and this is scheduled for Friday, the . Procedures, alternatives and risks have been discussed. The patient is agreeable to proceed. MICHELLE Adler MD JRT//benigno , 04:16 PM , 04:45 PM
[2017-08-14] MEDS ORDERED: PILL SPLITTER OTHER PRN (17:45)
[2017-08-14 19:09] LABS: HEMOGLOBIN A1C 5.8 % (4.3-6.0)
[2017-08-14 20:57] LABS: BILIRUBIN, URINE NEG (NEG); BLOOD, URINE TRACE (NEG); GLUCOSE,URINE NEG (NEG); KETONE, URINE NEG (NEG); NITRITE,URINE NEG (NEG); PH, URINE 6.5 (5.0-8.5); SQUAMOUS EPITHELIAL CELL URINE 1 /hpf (0-5); URINE COLOR YELLOW (YELLW/STRAW); URINE LEUKOCYTE ESTERASE NEG (NEG)
[2017-08-14] MEDS ORDERED: SODIUM CHLORIDE 0.9% FLUSH 10 ML FLUSH IV FLUSH SCH (21:00)
[2017-08-14] MEDS ORDERED: PROG200C PO (21:51)
[2017-08-14] MEDS ORDERED: ACETAMINOPHEN/HYDROcodone 325 MG/5 MG TAB PO ONE (22:00)
--- NOTE | 2017-08-14 22:47 | RADRPT ---
EXAM DATE/TIME: 08/14/2017 21:21 [place] COMPARISON: No previous studies available for comparison. INDICATIONS : Pre-op cardiac surgery. MEDICAL HISTORY : Hypercholesterolemia. SURGICAL HISTORY : Left knee surgery. ENCOUNTER: Initial ACUITY: 1 day PAIN SCORE: 0/10 LOCATION: Bilateral neck PEAK SYSTOLIC VELOCITIES (cm/sec): ICA/CCA RATIO: Right: 1.4 Left: 1.3 ICA: Right: 114 Left: 118 CCA: Right: 79 Left: 90 ECA: Right: 73 Left: 80 VERTEBRAL: Right: 72 antegrade Left: 28 antegrade Elevated flow velocities and ICA/CCA ratios have been found to correlate with increased degrees of vessel stenosis, calculated as percentage of diameter relative to a normal segment of distal ICA/CCA FINDINGS: RIGHT CAROTID: No significant stenosis is visualized. The waveforms are within normal limits. LEFT CAROTID: No significant stenosis is visualized. The waveforms are within normal limits. VERTEBRAL ARTERIES: Antegrade flow is seen in both vertebral arteries. MISCELLANEOUS: None. CONCLUSION: Within normal limits. No significant carotid plaque or narrowing on either side. Javier Barrera MD on August 14, 2017 at 22:44 Board Certified Radiologist. This report was verified electronically.
[2017-08-14] MEDS: ZOLPIDEM TARTRATE 5 MG TAB PO PRN (23:03)
[2017-08-14] MEDS: SODIUM CHLORIDE 0.9% FLUSH 10 ML FLUSH IV FLUSH SCH (23:04)
[2017-08-15] VITALS (24 sets, daily range): BP systolic 85–115; BP diastolic 50–79; PULSE 67–92; RESP 14–18; TEMP 97.7–99; O2SAT 95–97
--- NOTE | 2017-08-15 00:37 | MB ---
cc: Adam Grace DO DATE OF CONSULT: REASON FOR CONSULTATION: Left atrial myxoma. HISTORY OF PRESENT ILLNESS: Connie Gardiner is a pleasant 57-year-old female who presented to [facility] Emergency Room due to shortness of breath. She was seeing her sports complex attendant, Dr. Nicola Noriega and he did an echocardiogram which showed a left atrial myxoma which measured 5 x 5 x 5.3. It arises from the interatrial septum and there was a concern that it was entering the left ventricle during diastole. He evaluated the patient and there was a concern for shortness of breath that was significant with very little activity and he felt like this needed to be taken care of urgently and so he sent her into the emergency room. Dr. Noriega called me about the patient so that I could evaluate her and plan for cardiac catheterization. In seeing her, she denies chest pain but states that she gets significant shortness of breath with very little activities around the house. PAST MEDICAL HISTORY: 1. Hyperlipidemia. 2. Diverticulosis. 3. Anxiety. 4. Insomnia. 5. Mild spinal stenosis. PAST SURGICAL HISTORY: Left knee arthroscopic surgery. ALLERGIES: 1. BACITRACIN. 2. NEOMYCIN. 3. POLYMYXIN. MEDICATIONS: 1. Crestor 5 mg daily. 2. Aspirin 81 mg daily. 3. Hydrocodone/acetaminophen 5/325 every 6 hours as needed for pain. 4. Lexapro 5 mg daily. 5. Ambien 5 mg every night as needed for insomnia. 6. Lasix 20 mg daily. 7. Estrace 1 mg daily. 8. Progesterone 100 mg daily and 200 mg at night. FAMILY HISTORY: Mother from diabetes and a stroke. Father had a subarachnoid hemorrhage. 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 Denies tobacco or alcohol. REVIEW OF SYSTEMS: Fourteen systems were reviewed including osteopathic. Pertinent positives and negatives above, otherwise negative. PHYSICAL EXAMINATION: VITAL SIGNS: Temperature 98.6, heart rate 79, blood pressure 133/76, respirations 17, pulse oximetry 99% on room air. GENERAL: The patient appears well, no acute distress. Alert, awake and oriented x 3. HEENT: Extraocular muscles intact. Mucous membranes moist. NECK: Supple. No JVD at 45 degrees. No carotid bruits heard bilaterally. Carotid upstroke is brisk in nature. HEART: Regular rate and rhythm. Positive first and second heart sounds with a II/ diastolic murmur noted at the apex. LUNGS: Decreased breath sounds bilaterally but no overt wheezes, rales or rhonchi. ABDOMEN: Soft, nontender, nondistended. No organomegaly noted. EXTREMITIES: Show no clubbing, cyanosis or edema. Femoral and distal pulses intact bilaterally. NEUROLOGIC: No focal deficits. SKIN: Warm, dry and intact. OSTEOPATHIC: No kyphoscoliosis, lordosis or paraspinal tender points. LABORATORY DATA: Hemoglobin 14.4, hematocrit 43.7, platelets 315. Potassium 4.2, BUN 24, creatinine 0.9. Troponin less than 0.02. BNP 123. Electrocardiogram (08/14/2017 at 11:11) sinus rhythm, baseline artifact, no acute ST-T wave changes. IMPRESSION: 1. Left atrial myxoma by echocardiogram arising from the interatrial septum measuring 5 x 5 x 5.3. 2. Significant shortness of breath secondary to left atrial myxoma causing obstructive pathology. 3. History of hyperlipidemia. 4. Anxiety. RECOMMENDATIONS: 1. Ms. Gardiner appears to have significant shortness of breath with very little activity and this is most likely due to her left atrial myxoma causing an obstructive pathology. 2. Because of this, she will undergo right and left heart catheterization in anticipation of surgery. 3. She is currently not short of breath at rest and does not appear to be in acute heart failure and so I would hold off on diuresing her at this time as we need to keep her from getting dehydrated. 4. After cardiac catheterization, I will discuss with CT surgery about consideration of inpatient surgery as she has significant shortness of breath with very little activity. Thank you for allowing me to see Connie Gardiner. If there are any questions, please do not hesitate to call. Adam Grace, DO VGP/rt , 11:22 PM , 12:36 AM
--- NOTE | 2017-08-15 01:08 | MA ---
cc: Adam Grace DO 08/14/2017 PROCEDURE: Left heart catheterization, right heart catheterization, coronary angiogram. PREPROCEDURE DIAGNOSIS: Acute congestive heart failure secondary to left atrial myxoma. POSTPROCEDURE DIAGNOSIS: No significant coronary artery disease, mild pulmonary hypertension secondary to elevated left atrial pressures. MEDICATIONS: Fentanyl 50 mcg, nitro 200 mcg, verapamil 2.5 mg, heparin 2200 units. CONTRAST USED: 40 mL. FLUOROSCOPY: 2.7 minutes. MODERATE SEDATION: 0 minutes. ESTIMATED BLOOD LOSS: 10 mL PROCEDURAL SUMMARY: Connie Gardiner is a pleasant 57-year-old female who sees Dr. Noriega and was found to have a left atrial myxoma. She has significant shortness of breath with little activity and this is most likely due to obstructive pathology due to this. Because of this, she was recommended cardiac catheterization in consideration of possible surgery in the near future. Risks, benefits and alternatives were explained to her and she consented as such. She was brought to the lab and prepped in the usual sterile fashion. The right radial artery was accessed using a modified Seldinger technique and placement of a 5/6 Australian Slender sheath. I attempted to place a brachial vein sheath with ultrasound guidance, but was unable to and so right femoral vein was accessed using a modified Seldinger technique and placement of a 5-Australian sheath. This was easily aspirated and flushed. A [place] catheter was advanced to a wedge position and oxygen saturations as well as pressures were done on the standard fashion upon pullback throughout the heart. [place] catheter was removed. A JR4 was advanced over a J-wire to the ascending aorta and across the aortic valve for measurement of left ventricular pressure. This was pulled back across the aortic valve showing no significant gradient of aortic stenosis. JR4 was used for selective angiography of the right coronary artery system. This is exchanged out for a JL3.5, which was used for selective angiography of the left coronary artery system. JL3.5 was removed over a J wire. Radial band was placed over the arteriotomy site for hemostasis. Femoral venous sheath was pulled and pressure held for hemostasis. The patient left the laboratory aide cardiovascularly stable. FINDINGS: LEFT MAIN: Normal size vessel with adequate reflux. It bifurcates into an LAD and circumflex. LEFT ANTERIOR DESCENDING: Normal sized vessel with mild luminal irregularities throughout the mid portion and some tortuosity, but no significant disease. It gives off 2 major diagonals with no significant disease. LEFT CIRCUMFLEX: Normal size vessel with no significant disease. It gives off 2 major obtuse marginals with no significant disease. RIGHT CORONARY ARTERY: Normal size vessel with no significant disease. Overall, it is a dominant vessel and supplies the PDA. HEMODYNAMICS: RA 3. RV 50/1. RVEDP 5. PA 54/18, mean 34. Wedge 36. LVEDP 8. IMPRESSION: 1. Left atrial myxoma causing obstructive pathology. 2. Congestive heart failure secondary to left atrial myxoma. 3. No significant coronary artery disease. 4. Mild pulmonary hypertension, type 2. RECOMMENDATIONS: 1. Ms. Gardiner appears to have no significant coronary artery disease. 2. She will be recommended evaluation by CT surgery for consideration of a left atrial myxoma removal. 3. Overall, as she has significant shortness of breath with minimal activity, I feel that she should stay inpatient and have this done and this was discussed with her as well as CT surgery. 4. As she is currently stable, in no acute heart failure, I would avoid diuresing her, as I do not want to make her dehydrated at this time. Further recommendations will be made based on the hospital course. Thank you for allowing me to see Connie Gardiner. If there are any questions, please do not hesitate to call. Adam Grace, VGP/rt , 12:24 AM , 01:07 AM
[2017-08-15 05:58] LABS: AUTOMATED NEUTROPHIL # 2.2 TH/MM3 (1.8-7.7); BASOPHIL % 0.7 % (0.0-2.0); EOSINOPHIL # 0.1 TH/MM3 (0-0.4); EOSINOPHIL % 2.7 % (0.0-4.0); HEMATOCRIT 40.4 % (35.0-46.0); HEMOGLOBIN 13.3 GM/DL (11.6-15.3); LYMPH % 39.5 % (9.0-44.0); LYMPHOCYTE # 1.8 TH/MM3 (1.0-4.8); MEAN CELL VOLUME 87.5 FL (80.0-100.0); MEAN CORPUSCULAR HEMOGLOBIN 28.9 PG (27.0-34.0); MEAN PLATELET VOLUME 8.4 FL (7.0-11.0); MONO % 9.9 % (0.0-8.0); MONOCYTE # 0.5 TH/MM3 (0-0.9); NEUT % 47.2 % (16.0-70.0); PLATELET COUNT 278 TH/MM3 (150-450); RED BLOOD COUNT 4.62 MIL/MM3 (4.00-5.30); RED CELL DISTRIBUTION WIDTH 13.5 % (11.6-17.2); WHITE BLOOD COUNT 4.6 TH/MM3 (4.0-11.0)
[2017-08-15 06:17] LABS: BICARBONATE 25.8 MEQ/L (21.0-32.0); CALCIUM 9.4 MG/DL (8.5-10.1); CREATININE 0.87 MG/DL (0.50-1.00)
[2017-08-15] MEDS ORDERED: ESCITALOPRAM OXALATE 10 MG TAB PO SCH (09:00)
--- NOTE | 2017-08-15 09:14 | HHI.PR ---
Subjective Remarks I have been called from ER by [facility] due to that the patient was sent from [place] by Doctor Hari due to Cardiac Mixoma she started with Palpitations and increasing shortness of breath. Patient reports over the last 2 years she has had increasing shortness of breath, for the last several weeks she has had a gurgling sensation when she was lying down, she reports that she now gets short of breath even when brushing her teeth. She was sent by her primary doctor to cardiology for evaluation. 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 She was initially seen by Dr. Noriega in [place], she was referred to [place] to see Dr. Roxanne Grace. Patient currently denies any chest pain. Symptom onset was gradual, symptom severity is moderate to severe. There are no alleviating factors. Symptoms are exacerbated with activity. The patient is been symptomatic for the last two years, she though was related to the weather of deconditioning, but six months ago was worsening until the point three moths ago she was not able to handle small weights or walking, she was seen by PCP and then by Cardiology and sent today for evaluation and Cardiothoracic surgery. Doctor Naveen will perform Median Sternotomy, excision of left atrial Myxoma. scheduled for 08/18/1708/15: Seen in her bedroom in the presence of three relatives, asking for her right dosage of Lexapro she states she takes 20 mg daily and also Benzodiazepines will re start her medicines, no nausea, vomit or diarrhea. Objective Vital Signs Date Time Temp Pulse Resp B/P (MAP) Pulse Ox O2 Delivery O2 Flow Rate FiO2 08/15/17 07:00 98.7 83 14 95/50 (65) 97 08/15/17 05:23 98.6 82 16 88/55 (66) 97 08/15/17 01:00 78 08/15/17 00:00 74 08/14/17 23:00 79 08/14/17 23:00 98.7 73 16 98/65 (76) 96 08/14/17 22:34 98 Nasal Cannula 2.00 08/14/17 22:00 74 08/14/17 21:00 76 08/14/17 20:00 74 08/14/17 20:00 98.7 97 16 88/63 (71) 97 08/14/17 19:00 83 08/14/17 18:00 77 08/14/17 17:00 77 08/14/17 16:30 97.9 79 18 109/62 (78) 96 08/14/17 14:07 99 Room Air 08/14/17 12:20 08/14/17 11:33 98 Nasal Cannula 2.00 08/14/17 11:30 73 18 116/64 (81) 99 Room Air 08/14/17 11:30 74 18 116/64 (81) 99 Room Air 08/14/17 11:13 76 18 127/75 (92) 98 Room Air 08/14/17 11:13 75 24 127/75 (92) 99 Room Air 08/14/17 11:04 75 98 Room Air 08/14/17 10:50 98.6 79 17 133/76 (95) 99 I/O 08/14/17 08/14/17 08/14/17 08/15/17 08/15/17 08/15/17 06:59 14:59 22:59 06:59 14:59 22:59 Intake Total 240 ml Output Total 540 ml Balance -300 ml Intake Oral 240 ml Output Urine Total 540 ml # Bowel Movements 0 Result Diagram: 08/15/17 0504 08/15/17 0504 Imaging Last Impressions Chest X-Ray 08/14/17 1114 Signed Impressions: Service Date/Time: July 11:19 - CONCLUSION: Minimal left basilar streakiness consistent with atelectasis and/or minimal infiltrate. Clinical correlation is recommended. Leoncio Ulloa MD Carotid Artery Ultrasound 08/14/17 0000 Signed Impressions: Service Date/Time: July 21:21 - CONCLUSION: Within normal limits. No significant carotid plaque or narrowing on either side. Javier Barrera MD Procedures Cardiac catheterization 08/14/17 Other Results Laboratory Tests Test 08/14/17 11:05 08/14/17 17:00 08/14/17 20:33 08/15/17 05:04 Activated Partial Thromboplast Time 23.5 SEC Blood Urea Nitrogen 24 MG/DL 22 MG/DL Creatinine 0.90 MG/DL 0.87 MG/DL Random Glucose 99 MG/DL 94 MG/DL Total Protein 8.2 GM/DL Albumin 4.2 GM/DL Calcium Level 8.8 MG/DL 9.4 MG/DL Magnesium Level 2.4 MG/DL Alkaline Phosphatase 86 U/L Aspartate Amino Transf (AST/SGOT) 25 U/L Alanine Aminotransferase (ALT/SGPT) 27 U/L Total Bilirubin 0.4 MG/DL Sodium Level 141 MEQ/L 140 MEQ/L Potassium Level 4.2 MEQ/L 4.2 MEQ/L Chloride Level 103 MEQ/L 106 MEQ/L Carbon Dioxide Level 26.9 MEQ/L 25.8 MEQ/L Total Creatine Kinase 107 U/L Creatine Kinase MB 0.8 NG/ML Troponin I LESS THAN 0.02 NG/ML B-Type Natriuretic Peptide 123 PG/ML Hemoglobin A1c 5.8 % Urine Color YELLOW Urine Turbidity CLEAR Urine pH 6.5 Urine Specific [place] 1.028 Urine Protein NEG mg/dL Urine Glucose (UA) NEG mg/dL Urine Ketones NEG mg/dL Urine Occult Blood TRACE Urine Nitrite NEG Urine Bilirubin NEG Urine Urobilinogen LESS THAN 2.0 MG/DL Urine Leukocyte Esterase NEG Urine RBC 1 /hpf Urine WBC 1 /hpf Urine Squamous Epithelial Cells 1 /hpf Microscopic Urinalysis Comment CULT NOT INDICATED Nasal Screen MRSA (PCR) MRSA NOT DETECTED White Blood Count 4.6 TH/MM3 Red Blood Count 4.62 MIL/MM3 Hemoglobin 13.3 GM/DL Hematocrit 40.4 % Mean Corpuscular Volume 87.5 FL Mean Corpuscular Hemoglobin 28.9 PG Mean Corpuscular Hemoglobin Concent 33.0 % Red Cell Distribution Width 13.5 % Platelet Count 278 TH/MM3 Mean Platelet Volume 8.4 FL Neutrophils (%) (Auto) 47.2 % Lymphocytes (%) (Auto) 39.5 % Monocytes (%) (Auto) 9.9 % Eosinophils (%) (Auto) 2.7 % Basophils (%) (Auto) 0.7 % Neutrophils # (Auto) 2.2 TH/MM3 Lymphocytes # (Auto) 1.8 TH/MM3 Monocytes # (Auto) 0.5 TH/MM3 Eosinophils # (Auto) 0.1 TH/MM3 Basophils # (Auto) 0.0 TH/MM3 CBC Comment DIFF FINAL Differential Comment Prothrombin Time 10.0 SEC Prothromb Time International Ratio 1.0 RATIO Anion Gap 8 MEQ/L Estimat Glomerular Filtration Rate 67 ML/MIN Objective Remarks GENERAL: Well-developed, well-nourished, alert female. Presenting in no acute distress. Appears anxious. SKIN: Warm and dry. HEAD: Atraumatic. Normocephalic. EYES: Pupils equal and round. No scleral icterus. No injection or drainage. ENT: No nasal bleeding or discharge. Mucous membranes pink and moist. NECK: Trachea midline. No JVD. CARDIOVASCULAR: Regular rate and rhythm. RESPIRATORY: No accessory muscle use. Clear to auscultation. Breath sounds equal bilaterally. GASTROINTESTINAL: Abdomen soft, non-tender, nondistended. Hepatic and splenic margins not palpable. MUSCULOSKELETAL: Extremities without clubbing, cyanosis, or edema. No obvious deformities. NEUROLOGICAL: Awake and alert. No obvious cranial nerve deficits. Motor grossly within normal limits. Five out of 5 muscle strength in the arms and legs. Normal speech. PSYCHIATRIC: Appropriate mood and affect; insight and judgment normal. Medications and IVs Current Medications Medications (Trade) Dose Ordered Sig/Melody Route Start Time Stop Time Status Last Admin Sodium Chloride 1,000 ml @ 100 mls/hr Q10H IV 08/14/17 12:44 (Tylenol) 650 mg Q4H PRN PO 08/14/17 12:45 (Zofran Inj) 4 mg Q6H PRN IVP 08/14/17 12:45 (Narcan Inj) 0.4 mg UNSCH PRN IV PUSH 08/14/17 12:45 (Senokot) 17.2 mg Q12H PRN PO 08/14/17 12:45 (Dulcolax Supp) 10 mg DAILY PRN RECTAL 08/14/17 12:45 (Lactulose Liq) 30 ml DAILY PRN PO 08/14/17 12:45 (NS Flush) 2 ml BID IV FLUSH 08/14/17 21:00 08/14/17 23:04 (NS Flush) 2 ml UNSCH PRN IV FLUSH 08/14/17 16:15 Cefazolin Sodium 500 mg/Sodium Chloride 505 ml @ 0 mls/hr ROUGHING MILL OPERATOR IRRIGATION 08/14/17 16:15 08/21/17 16:14 Cefazolin Sodium/ Dextrose 50 ml @ 100 mls/hr ROUGHING MILL OPERATOR IV 08/14/17 16:15 08/21/17 16:14 (Lopressor) 12.5 mg ROUGHING MILL OPERATOR PO 08/14/17 16:15 08/21/17 16:14 (Hibiclens 4% Top Soln) 1 applic ROUGHING MILL OPERATOR TOPICAL 08/14/17 16:15 08/21/17 16:14 Insulin Human Regular 100 units/ Sodium Chloride 100 ml @ 3 mls/hr TITRATE PRN IV 08/14/17 16:15 08/21/17 16:14 (D50w (Vial) Inj) 50 ml UNSCH PRN IV PUSH 08/14/17 16:15 (Lexapro) 5 mg DAILY PO 08/15/17 09:00 (Ambien) 5 mg HS PRN PO 08/14/17 17:30 08/14/17 23:03 (Lipitor) 10 mg DAILY PO 08/15/17 09:00 (Pill Splitter) 1 ea UNSCH PRN OTHER 08/14/17 17:45 A/P Assessment and Plan Large Myxoma Patient presents with medical records from her metrology specialist Dr. Noriega. She had a 2D echo performed which shows ejection fraction of 60%. Mild mitral valve regurgitation, mildly elevated systolic pulmonary artery pressure, mild tricuspid valve regurgitation. Aortic valve sclerosis without stenosis. Mild aortic valve regurgitation. Left atrium has a myxoma measuring 5.5 x 5.3 x 4.2 which enters the left ventricle during diastole. Diastolic function appears normal. evaluation and Cardiothoracic surgery. Doctor Naveen will perform Median Sternotomy, excision of left atrial Myxoma. scheduled for 08/18/17 Cardiac Catheterization did not found significant Coronary artery disease. Hyperlipidemia to continue Rosuvastatin Depression to continue escitalopram. as per patient she uses 20 mg daily not 5 mg will increase her dosage. Insomnia continue Zolpidem as needed. DVT prophylaxis as per Cardiology Code Status Full Code. Discussed Condition With Patient and nurse. Discharge Planning Once cleared by Cardiothoracic surgery Yury Morocho MD Aug 15, 2017 09:14
[2017-08-15] MEDS: ATORVASTATIN 10 MG TAB PO SCH (09:44)
[2017-08-15] MEDS: SODIUM CHLORIDE 0.9% FLUSH 10 ML FLUSH IV FLUSH SCH ×2 (09:44→21:51)
--- NOTE | 2017-08-15 11:09 | EKG ---
Date Performed: 08/14/2017 Time Performed: 11:11:17 PTAGE: 57 years EKG: Sinus rhythm NORMAL ECG NO PREVIOUS TRACING DOCTOR: Xavier Julien Interpretating Date/Time 08/15/2017 11:07:22
--- NOTE | 2017-08-15 13:16 | PD.CARD.PN ---
Subjective Subjective Remarks No events overnight Up in the chair, no complaints Objective Medications Current Medications Medications (Trade) Dose Ordered Sig/Melody Route Start Time Stop Time Status Last Admin Sodium Chloride 1,000 ml @ 100 mls/hr Q10H IV 08/14/17 12:44 (Tylenol) 650 mg Q4H PRN PO 08/14/17 12:45 (Zofran Inj) 4 mg Q6H PRN IVP 08/14/17 12:45 (Narcan Inj) 0.4 mg UNSCH PRN IV PUSH 08/14/17 12:45 (Senokot) 17.2 mg Q12H PRN PO 08/14/17 12:45 (Dulcolax Supp) 10 mg DAILY PRN RECTAL 08/14/17 12:45 (Lactulose Liq) 30 ml DAILY PRN PO 08/14/17 12:45 (NS Flush) 2 ml BID IV FLUSH 08/14/17 21:00 08/15/17 09:44 (NS Flush) 2 ml UNSCH PRN IV FLUSH 08/14/17 16:15 Cefazolin Sodium 500 mg/Sodium Chloride 505 ml @ 0 mls/hr EQUIPMENT OPERAT0R IRRIGATION 08/14/17 16:15 08/21/17 16:14 Cefazolin Sodium/ Dextrose 50 ml @ 100 mls/hr EQUIPMENT OPERAT0R IV 08/14/17 16:15 08/21/17 16:14 (Lopressor) 12.5 mg EQUIPMENT OPERAT0R PO 08/14/17 16:15 08/21/17 16:14 (Hibiclens 4% Top Soln) 1 applic EQUIPMENT OPERAT0R TOPICAL 08/14/17 16:15 08/21/17 16:14 Insulin Human Regular 100 units/ Sodium Chloride 100 ml @ 3 mls/hr TITRATE PRN IV 08/14/17 16:15 08/21/17 16:14 (D50w (Vial) Inj) 50 ml UNSCH PRN IV PUSH 08/14/17 16:15 (Lexapro) 5 mg DAILY PO 08/15/17 09:00 08/15/17 09:45 (Ambien) 5 mg HS PRN PO 08/14/17 17:30 08/14/17 23:03 (Lipitor) 10 mg DAILY PO 08/15/17 09:00 08/15/17 09:44 (Pill Splitter) 1 ea UNSCH PRN OTHER 08/14/17 17:45 Vital Signs / I&O Vital Signs Date Time Temp Pulse Resp B/P (MAP) Pulse Ox O2 Delivery O2 Flow Rate FiO2 08/15/17 11:30 97.8 85 14 93/66 (75) 97 08/15/17 10:44 97 Nasal Cannula 2.00 08/15/17 07:00 67 08/15/17 07:00 98.7 83 14 95/50 (65) 97 08/15/17 05:23 98.6 82 16 88/55 (66) 97 08/15/17 01:00 78 08/15/17 00:00 74 08/14/17 23:00 79 08/14/17 23:00 98.7 73 16 98/65 (76) 96 08/14/17 22:34 98 Nasal Cannula 2.00 08/14/17 22:00 74 08/14/17 21:00 76 08/14/17 20:00 74 08/14/17 20:00 98.7 97 16 88/63 (71) 97 08/14/17 19:00 83 08/14/17 18:00 77 08/14/17 17:00 77 08/14/17 16:30 97.9 79 18 109/62 (78) 96 08/14/17 14:07 99 Room Air I/O 08/14/17 08/14/17 08/14/17 08/15/17 08/15/17 08/15/17 07:00 15:00 23:00 07:00 15:00 23:00 Intake Total 240 ml Output Total 540 ml Balance -300 ml Intake Oral 240 ml Output Urine Total 540 ml # Bowel Movements 0 Physical Exam GENERAL: NAD, AAOx3 SKIN: Warm and dry. HEAD: Atraumatic. Normocephalic. EYES: Pupils equal and round. No scleral icterus. No injection or drainage. ENT: No nasal bleeding or discharge. Mucous membranes pink and moist. NECK: Trachea midline. No JVD. CARDIOVASCULAR: Regular rate and rhythm. RESPIRATORY: No accessory muscle use. Clear to auscultation. Breath sounds equal bilaterally. GASTROINTESTINAL: Abdomen soft, non-tender, nondistended. Hepatic and splenic margins not palpable. MUSCULOSKELETAL: Extremities without clubbing, cyanosis, or edema. No obvious deformities. NEUROLOGICAL: Awake and alert. No obvious cranial nerve deficits. Motor grossly within normal limits. Five out of 5 muscle strength in the arms and legs. Normal speech. PSYCHIATRIC: Appropriate mood and affect; insight and judgment normal. Laboratory Laboratory Tests Test 08/14/17 17:00 08/14/17 20:33 08/15/17 05:04 Hemoglobin A1c 5.8 % Urine Color YELLOW Urine Turbidity CLEAR Urine pH 6.5 Urine Specific [place] 1.028 Urine Protein NEG mg/dL Urine Glucose (UA) NEG mg/dL Urine Ketones NEG mg/dL Urine Occult Blood TRACE Urine Nitrite NEG Urine Bilirubin NEG Urine Urobilinogen LESS THAN 2.0 MG/DL Urine Leukocyte Esterase NEG Urine RBC 1 /hpf Urine WBC 1 /hpf Urine Squamous Epithelial Cells 1 /hpf Microscopic Urinalysis Comment CULT NOT INDICATED Nasal Screen MRSA (PCR) MRSA NOT DETECTED White Blood Count 4.6 TH/MM3 Red Blood Count 4.62 MIL/MM3 Hemoglobin 13.3 GM/DL Hematocrit 40.4 % Mean Corpuscular Volume 87.5 FL Mean Corpuscular Hemoglobin 28.9 PG Mean Corpuscular Hemoglobin Concent 33.0 % Red Cell Distribution Width 13.5 % Platelet Count 278 TH/MM3 Mean Platelet Volume 8.4 FL Neutrophils (%) (Auto) 47.2 % Lymphocytes (%) (Auto) 39.5 % Monocytes (%) (Auto) 9.9 % Eosinophils (%) (Auto) 2.7 % Basophils (%) (Auto) 0.7 % Neutrophils # (Auto) 2.2 TH/MM3 Lymphocytes # (Auto) 1.8 TH/MM3 Monocytes # (Auto) 0.5 TH/MM3 Eosinophils # (Auto) 0.1 TH/MM3 Basophils # (Auto) 0.0 TH/MM3 CBC Comment DIFF FINAL Differential Comment Prothrombin Time 10.0 SEC Prothromb Time International Ratio 1.0 RATIO Blood Urea Nitrogen 22 MG/DL Creatinine 0.87 MG/DL Random Glucose 94 MG/DL Calcium Level 9.4 MG/DL Sodium Level 140 MEQ/L Potassium Level 4.2 MEQ/L Chloride Level 106 MEQ/L Carbon Dioxide Level 25.8 MEQ/L Anion Gap 8 MEQ/L Estimat Glomerular Filtration Rate 67 ML/MIN Assessment and Plan Problem List: (1) Myxoma of heart ICD Codes: D15.1 - Benign neoplasm of heart Status: Acute Assessment and Plan 1) Left atrial myxoma Plan for surgery on Friday 2) No significant CAD 3) Mild PHTN secondary to obstructive pathology of myxoma 4) Dr. Dickson will be available on a PRN basis over the weekend if concerns should arise Adam Grace DO Aug 15, 2017 13:16
[2017-08-15] MEDS: LORazepam 0.5 MG TAB PO PRN (17:59)
[2017-08-15] MEDS: ZOLPIDEM TARTRATE 5 MG TAB PO PRN (21:53)
[2017-08-16] VITALS (28 sets, daily range): BP systolic 86–103; BP diastolic 52–66; PULSE 63–98; RESP 14–18; TEMP 97–98.7; O2SAT 94–98
[2017-08-16] MEDS: LORazepam 0.5 MG TAB PO PRN ×3 (05:26→23:50)
[2017-08-16] MEDS: SODIUM CHLORIDE 0.9% FLUSH 10 ML FLUSH IV FLUSH SCH ×2 (08:56→21:35)
[2017-08-16] MEDS: ESCITALOPRAM OXALATE 10 MG TAB PO SCH (08:57)
[2017-08-16] MEDS: ATORVASTATIN 10 MG TAB PO SCH (08:57)
--- NOTE | 2017-08-16 10:19 | PD.CAR.PN ---
CVT Progress Note Subjective/Hospital Course: OR Friday Objective: Vital Signs Date Time Temp Pulse Resp B/P (MAP) Pulse Ox O2 Delivery O2 Flow Rate FiO2 08/16/17 08:52 97 Nasal Cannula 2.00 08/16/17 07:00 98.7 83 18 88/52 (64) 97 08/16/17 07:00 69 08/16/17 06:00 74 08/16/17 05:23 76 16 86/58 (67) 97 08/16/17 05:00 64 08/16/17 04:00 72 08/16/17 03:00 68 08/16/17 02:00 64 08/16/17 01:00 72 08/16/17 00:00 82 08/15/17 23:30 86 16 85/59 (68) 96 08/15/17 23:00 76 08/15/17 22:00 76 08/15/17 21:00 68 08/15/17 20:00 72 08/15/17 19:40 99.0 92 18 91/62 (72) 95 08/15/17 19:00 87 08/15/17 18:00 76 08/15/17 17:00 74 08/15/17 16:00 72 08/15/17 15:00 83 08/15/17 15:00 97.7 89 16 115/79 (91) 96 08/15/17 14:00 90 08/15/17 13:00 88 08/15/17 12:00 90 08/15/17 11:30 97.8 85 14 93/66 (75) 97 08/15/17 11:00 91 08/15/17 10:44 97 Nasal Cannula 2.00 Result Diagram: 08/15/17 0504 08/15/17 0504 (1) Myxoma of heart Shana Davis MD Aug 16, 2017 10:19
--- NOTE | 2017-08-16 14:37 | HHI.PR ---
Subjective Remarks Follow-up myxoma of heart 08/16/17-patient seen and examined, she was up and ambulated denies any chest pain or shortness of breath. Objective Vitals Vital Signs Date Time Temp Pulse Resp B/P (MAP) Pulse Ox O2 Delivery O2 Flow Rate FiO2 08/16/17 12:00 82 08/16/17 11:00 97.9 90 18 101/58 (72) 98 08/16/17 11:00 71 08/16/17 10:00 86 08/16/17 09:00 98 08/16/17 08:52 97 Nasal Cannula 2.00 08/16/17 08:00 74 08/16/17 07:00 98.7 83 18 88/52 (64) 97 08/16/17 07:00 69 08/16/17 06:00 74 08/16/17 05:23 76 16 86/58 (67) 97 08/16/17 05:00 64 08/16/17 04:00 72 08/16/17 03:00 68 08/16/17 02:00 64 08/16/17 01:00 72 08/16/17 00:00 82 08/15/17 23:30 86 16 85/59 (68) 96 08/15/17 23:00 76 08/15/17 22:00 76 08/15/17 21:00 68 08/15/17 20:00 72 08/15/17 19:40 99.0 92 18 91/62 (72) 95 08/15/17 19:00 87 08/15/17 18:00 76 08/15/17 17:00 74 08/15/17 16:00 72 08/15/17 15:00 83 08/15/17 15:00 97.7 89 16 115/79 (91) 96 I/O 08/15/17 08/15/17 08/15/17 08/16/17 08/16/17 08/16/17 07:00 15:00 23:00 07:00 15:00 23:00 Intake Total 240 ml 480 ml 240 ml Output Total 540 ml 500 ml 400 ml Balance -300 ml -20 ml -160 ml Intake Oral 240 ml 480 ml 240 ml Output Urine Total 540 ml 500 ml 400 ml # Bowel Movements 0 2 0 Result Diagram: 08/15/17 05008/15/17 0504 Imaging Last Impressions Chest X-Ray 08/14/17 1114 Signed Impressions: Service Date/Time: July 11:19 - CONCLUSION: Minimal left basilar streakiness consistent with atelectasis and/or minimal infiltrate. Clinical correlation is recommended. Leoncio Ulloa MD Carotid Artery Ultrasound 08/14/17 0000 Signed Impressions: Service Date/Time: July 21:21 - CONCLUSION: Within normal limits. No significant carotid plaque or narrowing on either side. Javier Barrera MD Objective Remarks GENERAL: NAD SKIN: Warm and dry. HEAD: Normocephalic. EYES: No scleral icterus. No injection or drainage. NECK: Supple, trachea midline. No JVD or lymphadenopathy. CARDIOVASCULAR: Regular rate and rhythm without murmurs, gallops, or rubs. RESPIRATORY: Breath sounds equal bilaterally. No accessory muscle use. GASTROINTESTINAL: Abdomen soft, non-tender, nondistended. MUSCULOSKELETAL: No cyanosis, or edema. BACK: Nontender without obvious deformity. No CVA tenderness. A/P Problem List: (1) Myxoma of heart ICD Code: D15.1 - Benign neoplasm of heart Status: Acute Assessment and Plan 57-year-old female with Myxoma of heart Appreciate input from cardiothoracic surgery and plan for surgery next week 08/18/17 Cardiac Catheterization did not found significant Coronary artery disease. Hyperlipidemia continue Rosuvastatin Depression continue escitalopram Insomnia continue Zolpidem as needed. DVT prophylaxis as per Cardiology Gaudencio Patten MD Aug 16, 2017 14:37
[2017-08-16] MEDS: ZOLPIDEM TARTRATE 5 MG TAB PO PRN (21:34)
[2017-08-17] VITALS (24 sets, daily range): BP systolic 83–130; BP diastolic 52–79; PULSE 66–96; RESP 16–17; TEMP 97.9–98.4; O2SAT 95–98
[2017-08-17] MEDS: SODIUM CHLOR 0.9% 1000 ML INJ 1,000 ML IV SCH ×2 (00:44→20:44)
[2017-08-17] MEDS: ESCITALOPRAM OXALATE 10 MG TAB PO SCH (09:03)
[2017-08-17] MEDS: ATORVASTATIN 10 MG TAB PO SCH (09:03)
[2017-08-17] MEDS: LORazepam 0.5 MG TAB PO PRN ×2 (09:03→17:28)
[2017-08-17] MEDS: SODIUM CHLORIDE 0.9% FLUSH 10 ML FLUSH IV FLUSH SCH ×2 (09:03→21:00)
[2017-08-17] MEDS ORDERED: PNEUMOCOCCAL POLYVALENT INJ 25 MCG/0.5 ML SYR IM ONE (10:00)
[2017-08-17] MEDS ORDERED: INFLUENZA VIRUS VACCINE (QUADRIVALENT) 0.5 ML SYR IM ONE (10:00)
--- NOTE | 2017-08-17 10:54 | HHI.PR ---
Subjective Remarks Follow-up myxoma of heart 08/16/17-patient seen and examined, she was up and ambulated denies any chest pain or shortness of breath. 08/17/17-patient seen and examined, awaiting for tomorrow procedure. no acute event overnight Objective Vitals Vital Signs Date Time Temp Pulse Resp B/P (MAP) Pulse Ox O2 Delivery O2 Flow Rate FiO2 08/17/17 07:00 97.9 78 16 109/75 (86) 96 08/17/17 06:00 76 08/17/17 05:25 78 16 83/52 (62) 96 08/17/17 05:00 72 08/17/17 04:00 68 08/17/17 03:00 66 08/17/17 02:00 76 08/17/17 01:00 74 08/17/17 00:00 76 08/16/17 23:53 74 16 91/55 (67) 98 08/16/17 23:00 71 08/16/17 22:00 80 08/16/17 21:35 21 08/16/17 21:00 92 08/16/17 20:00 78 08/16/17 19:45 97.0 82 16 86/60 (69) 98 08/16/17 19:00 91 08/16/17 18:00 94 08/16/17 17:00 80 08/16/17 16:00 78 08/16/17 15:00 98.1 91 18 103/66 (78) 96 08/16/17 15:00 82 08/16/17 14:00 82 08/16/17 13:00 90 08/16/17 12:00 82 08/16/17 11:00 97.9 90 18 101/58 (72) 98 08/16/17 11:00 71 I/O 08/16/17 08/16/17 08/16/17 08/17/17 08/17/17 08/17/17 07:00 15:00 23:00 07:00 15:00 23:00 Intake Total 240 ml 720 ml 480 ml Output Total 400 ml 650 ml 500 ml Balance -160 ml 70 ml -20 ml Intake Oral 240 ml 720 ml 480 ml Output Urine Total 400 ml 650 ml 500 ml # Bowel Movements 0 0 Result Diagram: 08/15/17 0504 08/15/17 0504 Objective Remarks GENERAL: NAD SKIN: Warm and dry. HEAD: Normocephalic. EYES: No scleral icterus. No injection or drainage. NECK: Supple, trachea midline. No JVD or lymphadenopathy. CARDIOVASCULAR: Regular rate and rhythm without murmurs, gallops, or rubs. RESPIRATORY: Breath sounds equal bilaterally. No accessory muscle use. GASTROINTESTINAL: Abdomen soft, non-tender, nondistended. MUSCULOSKELETAL: No cyanosis, or edema. BACK: Nontender without obvious deformity. No CVA tenderness. A/P Problem List: (1) Myxoma of heart ICD Code: D15.1 - Benign neoplasm of heart Status: Acute Assessment and Plan 57-year-old female with Myxoma of heart Appreciate input from cardiothoracic surgery and plan for surgery tomorrow Friday08/18/17 Cardiac Catheterization did not found significant Coronary artery disease. Hyperlipidemia continue Rosuvastatin Depression continue escitalopram Insomnia continue Zolpidem as needed. DVT prophylaxis as per Cardiology Gaudencio Patten MD Aug 17, 2017 10:54
[2017-08-17] MEDS ORDERED: CHLORHEXIDINE GLUCONATE 2 % 1 PACK (2 CLOTHS) TOPICAL PRN (23:45)
[2017-08-17] MEDS ORDERED: SODIUM CHLORID 0.9% 500 ML IV PRN (23:45)
[2017-08-17] MEDS ORDERED: POVIDONE IODINE 5% (ANTISEPSIS KIT) 4 APPLICATIONS EACH NARE PRN (23:45)
[2017-08-17] MEDS ORDERED: LACTATED RINGER'S 1000 ML IV PRN (23:45)
[2017-08-18] VITALS (14 sets, daily range): BP systolic 82–120; BP diastolic 46–64; PULSE 64–82; RESP 10–16; TEMP 98.2–99; O2SAT 97–99
[2017-08-18] MEDS: ZOLPIDEM TARTRATE 5 MG TAB PO PRN ×2 (00:04→21:20)
[2017-08-18] MEDS: LORazepam 0.5 MG TAB PO PRN ×2 (00:04→21:20)
[2017-08-18] MEDS: SODIUM CHLOR 0.9% 1000 ML INJ 1,000 ML IV SCH ×2 (06:44→16:44)
[2017-08-18] MEDS ORDERED: ceFAZolin 2 GM PREMIX 50 ML ONE (07:11)
[2017-08-18] MEDS ORDERED: HEPARIN SODIUM - SQ 10,000 UNITS/ML VIAL ONE (07:12)
[2017-08-18] MEDS ORDERED: VANCOMYCIN HCL 1000 MG VIAL ONE (07:13)
[2017-08-18] MEDS ORDERED: methylPREDNISolone SOD SUCC 125 MG/2 ML VIAL ONE (07:13)
[2017-08-18] MEDS ORDERED: BUPIVACAINE HCL PF 0.5% 30 ML VIAL ONE (07:14)
[2017-08-18] MEDS ORDERED: CARDIOPLEGIC IRR 1,000 ML ONE (08:02)
[2017-08-18] MEDS ORDERED: POTASSIUM CHLORIDE 20 MEQ/10 ML VIAL ONE ×2 (08:04)
[2017-08-18] MEDS ORDERED: SODIUM BICARBONATE 8.4% INJ 50 ML ONE (08:04)
[2017-08-18] MEDS ORDERED: ALBUMIN 25% INJ 50 ML IV ONE (08:05)
[2017-08-18] MEDS ORDERED: HEPARIN SODIUM - IV 10,000 UNITS/10 ML VIAL ONE (08:05)
[2017-08-18] MEDS ORDERED: MANNITOL INJ 100 ML ONE (08:05)
[2017-08-18] MEDS ORDERED: CALCIUM CHLORIDE 10% SOLN 1 GRAM/10 ML SYR ONE (08:05)
[2017-08-18] MEDS: ceFAZolin 2 GM PREMIX 50 ML IV SCH ×2 (08:25→08:46)
[2017-08-18] MEDS: ATORVASTATIN 10 MG TAB PO SCH (09:00)
[2017-08-18] MEDS: SODIUM CHLORIDE 0.9% FLUSH 10 ML FLUSH IV FLUSH SCH ×2 (09:00→21:00)
[2017-08-18] MEDS: ESCITALOPRAM OXALATE 10 MG TAB PO SCH (09:00)
--- NOTE | 2017-08-18 10:49 | PD.CAR.PN ---
CVT Progress Note Subjective/Hospital Course: This is a 57-year-old very pleasant female who was referred to Dr. Grace from Dr. Adria Noriega. Apparently, has been having some shortness of breath off and on for the past 2 years, increasing over the last 6 months and becoming more noticeable in the past couple weeks. 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 She has also noticed some gurgling in her chest. She has had a mild cough, occasional wheeze. No fevers or chills. She underwent an echocardiogram by Dr. Noriega which showed a myxoma measuring 5 x 5 x 5.3 x 4 x 2, enters the left ventricle during diastole and arises from the intraarterial septum. There was also some mild aortic regurgitation, mild mitral regurgitation, mild tricuspid regurgitation, ejection fraction of 60%. The patient was then referred to our Emergency Department for admission and evaluation by Dr. Grace. The patient underwent cardiac catheterization today, which showed nonobstructive coronary disease, ejection fraction of 60%, right atrial pressures of 3, PA pressure 54/18, wedge pressure 36. 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 PAST MEDICAL HISTORY: Hyperlipidemia, diverticulosis, colon polyp, actinic keratosis, anxiety, insomnia. She has had history of some mild spinal stenosis , 08/18 surgery today : Objective: Vital Signs Date Time Temp Pulse Resp B/P (MAP) Pulse Ox O2 Delivery O2 Flow Rate FiO2 08/18/17 04:10 81 16 94/54 (67) 97 08/18/17 03:00 75 08/18/17 00:21 66 08/17/17 23:40 98.3 78 16 107/62 (77) 97 08/17/17 21:35 71 08/17/17 21:13 98.0 92 16 130/79 (96) 95 08/17/17 18:00 70 08/17/17 17:00 72 08/17/17 16:00 80 08/17/17 15:30 97.9 74 17 101/65 (77) 98 08/17/17 15:00 80 08/17/17 14:00 66 08/17/17 13:00 72 08/17/17 12:00 68 08/17/17 11:00 98.4 96 16 88/57 (67) 96 08/17/17 11:00 70 Result Diagram: 08/15/17 0504 08/15/17 0504 (1) Myxoma of heart (2) mediansternomy (3) excision of myxoma Ann Shepard Aug 18, 2017 10:49
--- NOTE | 2017-08-18 10:54 | HHI.FF ---
Face to Face Verification Diagnosis: (1) Myxoma of heart (2) mediansternomy (3) excision of myxoma Home Health Nursing Order: Medication education-adverse effect Wound care and dressing changes Nursing assessment with vital signs Instructions: Heart and Vascular Surgery patients *Special attention to sternal dressing Mandatory frequency Assess and evaluation, 4 days in a row The next week 3X week 2 times a week for 4 weeks 1 time a week for 5 weeks Schedule Heart and Vascular patients for full 60 day certification period Initial visit Review Open Heart Surgery Discharge Instructions (Sternal precautions, Activity, Elastic hose, Incision care, Driving, Incentive spirometry, Smoking, [place], Work and other) Need Betadine to paint incision Medication reconciliation Importance of follow up care/ check on appointments Make calendar record temperature daily When to call [facility] nurse, review instructions, phone list Incentive Spirometry, demonstration Visit 1- Begin discharge instruction for patient family and/ or caregiver using teach back method- Signs and symptoms of infection Disease characteristics Medicines and side effects Foods and nutrition/ appetite Infection control/ hand washing/ hygiene Visit 2- Continue teaching Discharge instructions- include additional information on smoking cessation , sternal dressing (sternal vac) Visit 3- Continue teaching- Cough and deep breathing, incision monitoring. Choose my plate Visit 4- Continue teaching- Discuss limitations Discuss how they are feeling Discuss progress toward goals Remaining visits- continue teaching and monitoring For any questions please call : Friday 8am-5pm Heart & Vascular Surgery Office ( Dr. Davis & Dr. Hodge), After Hours / Nights (5pm -8am) Weekends and Holidays Please call [facility] Cardiac [facility] Unit ([facility]) Charge Nurse PREVENA Single Use Negative Wound Therapy System Caregiver Instruction Sheet 1. A Prevena dressing system was applied to the chest incision during surgery , to promote wound healing. It works via a suction device (negative pressure wound therapy) to remove low to moderate levels of exudate (drainage) and infectious materials. We recommend that the device stay in place for up to seven days, from day of surgery. 2. Day of Surgery___3/ Day of Removal ____/ 3. The dressing should only be removed by a health health careers instructor. Please arrange removal of device to coincide with Home Health visit and or with Nursing staff at Rehab 4. If skin reddening or irritation of skin occurs, or excessive drainage, please notify the Cardiovascular Surgeons office at [phone]. 5. Light showering is permissible; however the pump should be disconnected and placed in safe location, where it will not get wet. The dressing should not be exposed to direct spray or submerged in water. No bath tub / shower only. Ensure the end of the tubing attached to the dressing is facing down so that water does not enter the top of the tube. 6. To remove Prevena dressing: press purple button to turn off device / remove the suction. Then disconnect the tubing from the pump. The fixation strips should be stretched away from the skin and the dressing lifted at one corner and peeled back until it has been fully removed. 7. After removal, it is ok to shower daily using liquid dial soap and clean wash cloth, rinse and pat dry, and leave incision open to air dry. For any concerns regarding Prevena dressing, and or wounds, please contact Dari Meade, patient navigator at [phone] or notify the Cardiovascular Surgeons office at [phone]. Incentive spirometry Q1 hr x 10, while awake, also use acapella device hourly whole awake Sternal Breast Bone Precautions: NO pushing or pulling, ( pt must use sternal pillow to support chest with all activities and with coughing ( takes up to 3 months breast bone to heal ) All females to wear sternal bra , launder as needed Daily incision care: ok to shower daily, no tub bath. Wash all incisions with liquid dial soap, clean wash cloth to each site, rinse and pat dry. Observe for any signs of infection, such as drainage which is dark yellow, duggan, green or foul smelling. Immediately report to the surgeon any drainage from the chest incision, or legs, and for any abnormal drainage from the chest tube sites. Notify surgeon if any temp >101.5 degrees F. When specialty dressing removed/ or if you do not have one, continue to shower daily as above, then rinse and pat incision dry and paint with betadine daily x 5 days. Allow steri strips to fall off if you have any. Avoid lotions, creams, salves, oils, etc. for the first month Please see attached forms for additional instructions regarding post Open Heart specialty wound vacuum dressings. ANT or Prevena , Dressing to be removed by Nursing staff on _08/25/[address] Hodge patients , please obtain CBC, BMP, PA & Lat CXR in 2 weeks, results to Dr. Hodge ( prescription will be given) ( ) (Tele: [phone]) , F/U appointment: as per DC instructions: PCP in 2 weeks, CV surgeon 2 weeks, [place] Nailer 3-4 weeks For any questions regarding incisions/ dressing / meds / post op care or above Symptoms, Friday 8am-5pm Heart & Vascular Surgery Office ( Dr. Davis & Dr. Hodge), After Hours / Nights (5pm -8am) Weekends and Holidays Please call [facility] Cardiac [facility] Unit (CIC) Charge Nurse I have seen patient Connie Gardiner on 08/18/17. My clinical findings support the need for the requested home health care services because: Deconditioned w/ increased weakness I certify that my clinical findings support that this patient is homebound because: Post-op weakness Ann Shepard Aug 18, 2017 10:54
[2017-08-18] MEDS ORDERED: POTASSIUM CHLOR 20 MEQ PREMIX 100 ML IV PRN ×4 (11:15→15:45)
[2017-08-18] MEDS ORDERED: MAGNESIUM SULFATE INJ 2 GM in SODIUM CHLORIDE 0.9% INJ 100 ML IV PRN ×4 (11:15)
[2017-08-18] MEDS ORDERED: DEXTROSE 50% IN WATER 50 ML VIAL(D50) IV PUSH PRN (11:15)
[2017-08-18] MEDS ORDERED: hydrALAZINE HCL 20 MG/ML VIAL IV PUSH PRN (11:15)
[2017-08-18] MEDS ORDERED: CALCIUM CHLORIDE 10% 1 GRAM/10 ML VIAL IV PUSH PRN (11:15)
[2017-08-18] MEDS ORDERED: METOPROLOL TARTRATE 5 MG/5 ML VIAL IV PUSH PRN (11:15)
[2017-08-18] MEDS ORDERED: RESP: ALBUTEROL 2.5 MG/IPRATROPIUM 0.5 MG NEB (PRN) NEB (11:15)
[2017-08-18] MEDS ORDERED: CALCIUM CHLORIDE INJ 1 GM in SODIUM CHLORIDE 0.9% INJ 100 ML IV PRN (11:15)
[2017-08-18] MEDS ORDERED: DEXMEDETOMIDINE INJ 200 MCG in SODIUM CHLORIDE 0.9% INJ 50 ML IV PRN (11:15)
[2017-08-18] MEDS ORDERED: CLEVIDIPINE INJ 50 ML IV PRN (11:15)
[2017-08-18] MEDS ORDERED: RESP: RACEPINEPHRINE 2.25% 0.5 ML NEB NEB PRN (11:15)
[2017-08-18] MEDS ORDERED: POTASSIUM CHLORIDE 20 MEQ CONTROLLED RELEASE TAB PO PRN ×2 (11:15)
[2017-08-18] MEDS ORDERED: SODIUM BICARBONATE 8.4% SOLN 50 MEQ/50 ML VIAL IV PUSH PRN ×2 (11:15)
[2017-08-18] MEDS ORDERED: SODIUM CHLORIDE 0.9% FLUSH 10 ML FLUSH IV FLUSH PRN (11:15)
[2017-08-18] MEDS ORDERED: ONDANSETRON HCL 4 MG/2 ML VIAL IV PUSH PRN (11:15)
--- NOTE | 2017-08-18 11:29 | PD.OP ---
cc: Faith Hodge MD Operative Report Date of Surgery: Aug 18, 2017 Preoperative Diagnosis: (1) Myxoma of heart Postoperative Diagnosis: same Procedure: Excision of left atrial myxoma Patch closure of atrial septum with pericardium AMA Anesthesia: Dr. Ferreira Surgeon: Faith Hodge Veterinary Technician Instructor(s): Janette Flynn, LASHELL Operation and Findings: The risks, benefits, complications, treatment options, and expected outcomes were discussed with the patient. The possibilities of reaction to medication, pulmonary aspiration, perforation of viscus, bleeding, recurrent infection, the need for additional procedures, failure to diagnose a condition, and creating a complication requiring transfusion or operation were discussed with the patient. The patient concurred with the proposed plan, giving informed consent. The site of surgery properly noted/marked. The patient was taken to Operating Room, identified as Connie Gardiner and the procedure verified as median sternotomy for excision of left atrial myxoma, AMA. A Time Out was held and the above information confirmed. Standard monitoring lines and Rowley catheter were placed. General anesthesia was induced. The patient was prepped and draped in a sterile fashion. A median sternotomy was performed and electrocautery was used to obtain hemostasis. The pericardium was opened and a pericardial sling was created using interrupted 0 silk sutures. The patient was heparinized for cardiopulmonary bypass. The heart was instrumented for cardiopulmonary bypass in the usual manner with bicaval venous drainage. Both the IVC and SVC were encircled with umbilical tapes to isolate the heart during the procedure. Antegrade blood cardioplegia was employed. The patient was placed on cardiopulmonary bypass. An aortic cross- clamp was applied and the heart was arrested using cold blood cardioplegia. Cardioplegia was administered at least every 20 minutes. The umbilical tapes were ensnared and the right atrium was opened widely. The fossa ovalis was identified and the left atrium was entered through the fossa ovalis. The septostomy was opened widely. A large left atrial mass with a broad sessile attachment to the septum was encountered measuring ~5 x 5 cm. This mass was removed in fragments along with the base and its adjacent septum. The left atrium and ventricle were copiously irrigated. The septal defect was repaired with a bovine pericardial patch using a running 4-0 Prolene suture. The right atrium was closed using a running 4-0 Prolene suture. The patient was systemically rewarmed and received a hotshot dose of warm blood cardioplegia. The heart was vigorously deaired with a clamp on. The patient was placed in Trendelenburg's position. The clamp was removed, deairing continued. Intraoperative AMA was used to assess the left atrium and septal repair. No ASD was identified. The patient was weaned from cardiopulmonary bypass. Protamine was given. There was no adverse reaction. Decannulation was carried out without incident. Wound was checked for hemostasis which was obtained using electrocautery. A 36 [place]guillan mediastinal and 32F [place]guillan right chest tubes were placed and secured to the skin with 0 silk suture. The sternum was closed with stainless steel wire. The fascia was closed with 1. PDS. The subcutaneous tissue was closed using a running 2-0 Vicryl suture. The skin was closed with 4-0 Monocryl. Sterile dressings were placed. At the end of the operation, all sponge, instruments, and needle counts were correct. The patient was transferred to the CVICU in stable condition. Findings: Large left atrial mass with broad attachment to atrial septum. XC: 65 min CPB: 87 min Drains: mediastinal x 1 pleural x 1 Specimens: left atrial mass and adjacent septum Implants: bovine pericardial patch Complications: none Disposition: To CVICU in stable condition Faith Hodge MD Aug 18, 2017 11:29
[2017-08-18] MEDS ORDERED: Post-op Orders (for Pharmacy) OTHER ONE (11:56)
[2017-08-18] MEDS ORDERED: SODIUM CHLORIDE 0.9% INJ 200 ML IV ONE (12:00)
[2017-08-18] MEDS ORDERED: DOPamine 800 MG/500 ML INJ 500 ML IV ONE (12:00)
[2017-08-18] MEDS ORDERED: VECURONIUM BROMIDE 10 MG VIAL IV ONE (12:00)
[2017-08-18] MEDS ORDERED: GLYCOPYRROLATE 0.2 MG/ML VIAL IV ONE (12:00)
[2017-08-18] MEDS ORDERED: PHENYLEPH/NS 1000 MCG/10 ML SYR IV ONE (12:00)
[2017-08-18] MEDS ORDERED: NORMOSOL R INJ 1,000 ML IV ONE (12:00)
[2017-08-18] MEDS ORDERED: HEPARIN SODIUM - SQ 10,000 UNITS/ML VIAL SQ ONE (12:00)
[2017-08-18] MEDS ORDERED: SODIUM CHLOR 0.9% 250 ML INJ 500 ML IV ONE (12:00)
[2017-08-18] MEDS ORDERED: PHENYLEPHRINE HCL 10 MG/ML VIAL IV ONE (12:00)
[2017-08-18] MEDS ORDERED: ePHEDrine/NS 25 MG/5 ML SYRINGE IV ONE (12:00)
[2017-08-18] MEDS ORDERED: AMINOCAPROIC ACID INJ 250 MG/ML 20 ML VIAL IV ONE (12:00)
[2017-08-18] MEDS ORDERED: NITROGLYCERIN 50 MG/DEXTROSE 5% SOLN 250 ML BTL IV ONE (12:00)
[2017-08-18] MEDS ORDERED: PROTAMINE SULFATE 50 MG/5 ML VIAL IV ONE (12:00)
[2017-08-18] MEDS ORDERED: MAGNESIUM SULFATE 1 GM/2 ML VIAL IV ONE (12:00)
[2017-08-18] MEDS ORDERED: DEXMEDETOMIDINE HCL 200 MCG/2 ML VIAL IV ONE (12:00)
[2017-08-18] MEDS ORDERED: LACTATED RINGER'S 1000 ML INJ 2,000 ML IV ONE (12:00)
[2017-08-18] MEDS ORDERED: SODIUM CHLORID 0.9% 500 ML INJ 500 ML IV ONE (12:00)
[2017-08-18] MEDS ORDERED: MIDAZOLAM HCL 2 MG/2 ML VIAL ONE (12:10)
[2017-08-18] MEDS ORDERED: fentaNYL CITRATE 250 MCG/5 ML AMP ONE (12:11)
[2017-08-18] MEDS ORDERED: INSULIN REGULAR (IV INFUSION) 100 UNITS in SODIUM CHLORIDE 0.9% INJ 99 ML IV PRN (12:30)
--- NOTE | 2017-08-18 12:35 | RADRPT ---
EXAM DATE/TIME: 08/18/2017 12:04 [facility] COMPARISON: CHEST SINGLE AP, August 14, 2017, 11:19. INDICATIONS : Post CABG MEDICAL HISTORY : Cardiovascular disease. SURGICAL HISTORY : CABG. ENCOUNTER: Subsequent ACUITY: 1 day PAIN SCORE: Non-responsive. LOCATION: Bilateral chest FINDINGS: Patient is status post CABG. There is a port devices in place. A right-sided chest tube in place. The re is a tiny right apical pneumothorax with 3 mm of separation. Otherwise, the lungs are well-aerated . There is mild atelectasis in the left lung base. The heart size is within normal limits. There no p leural effusions or pulmonary edema. Bony structures are stable. CONCLUSION: 1. Status post CABG. 2. Tiny 3 mm right apical pneumothorax. Right chest tube in place. 3. Mild left lower lung atelectasis. Alexander Bernal MD on August 18, 2017 at 12:32 Board Certified Radiologist. This report was verified electronically.
[2017-08-18] MEDS: ACETAMINOPHEN 1000 MG/100 ML 100 ML IV SCH ×2 (12:45→18:35)
--- NOTE | 2017-08-18 13:03 | PD.CARD.PN ---
Subjective Subjective Remarks Post myxoma removal Intubated, currently on CPAP Objective Medications Current Medications Medications (Trade) Dose Ordered Sig/Melody Route Start Time Stop Time Status Last Admin Sodium Chloride 1,000 ml @ 100 mls/hr Q10H IV 08/14/17 12:44 (Narcan Inj) 0.4 mg UNSCH PRN IV PUSH 08/14/17 12:45 (Senokot) 17.2 mg Q12H PRN PO 08/14/17 12:45 (Dulcolax Supp) 10 mg DAILY PRN RECTAL 08/14/17 12:45 (Lactulose Liq) 30 ml DAILY PRN PO 08/14/17 12:45 Cefazolin Sodium 500 mg/Sodium Chloride 505 ml @ 0 mls/hr POLYMER CHEMIST IRRIGATION 08/14/17 16:15 08/21/17 16:14 08/18/17 08:47 (Lopressor) 12.5 mg POLYMER CHEMIST PO 08/14/17 16:15 08/21/17 16:14 08/18/17 05:24 (Hibiclens 4% Top Soln) 1 applic POLYMER CHEMIST TOPICAL 08/14/17 16:15 08/21/17 16:14 08/17/17 21:43 (Ambien) 5 mg HS PRN PO 08/14/17 17:30 08/18/17 00:04 (Lipitor) 10 mg DAILY PO 08/15/17 09:00 08/17/17 09:03 (Pill Splitter) 1 ea UNSCH PRN OTHER 08/14/17 17:45 (Lexapro) 20 mg DAILY PO 08/16/17 09:00 08/17/17 09:03 (Ativan) 0.5 mg Q8H PRN PO 08/15/17 18:00 08/18/17 00:04 Lactated Ringer's 1,000 ml @ 30 mls/hr Q24H PRN IV 08/17/17 23:45 08/20/17 23:44 Sodium Chloride 500 ml @ 30 mls/hr [id number] PRN IV 08/17/17 23:45 08/20/17 23:44 (Betadine 5% Antisepsis Kit) 1 applic POLYMER CHEMIST PRN EACH NARE 08/17/17 23:45 08/20/17 23:44 (Chlorhexidine 2% Cloth) 3 pack POLYMER CHEMIST PRN TOPICAL 08/17/17 23:45 08/20/17 23:44 (NS Flush) 2 ml BID IV FLUSH 08/18/17 21:00 (NS Flush) 2 ml UNSCH PRN IV FLUSH 08/18/17 11:15 Dexmedetomidine HCl 200 mcg/ Sodium Chloride 52 ml @ 2.91 mls/hr TITRATE PRN IV 08/18/17 11:15 Clevidipine 50 ml @ 2 mls/hr TITRATE PRN IV 08/18/17 11:15 Albumin Human 250 ml @ 250 mls/hr UNSCH PRN IV 08/18/17 11:15 Lactated Ringer's 500 ml @ 500 mls/hr Q1H PRN IV 08/18/17 11:10 Cefazolin Sodium 1000 mg/Sodium Chloride 100 ml @ 200 mls/hr Q8H IV 08/18/17 17:00 08/20/17 01:29 (Aspirin Chew) 81 mg DAILY PO 08/19/17 09:00 (Protonix) 40 mg DAILY@06 PO 08/19/17 06:00 (Tylenol) 650 mg Q4H PRN PO 08/19/17 11:00 (Tylenol Supp) 650 mg Q4H PRN RECTAL 08/19/17 11:00 Acetaminophen 100 ml @ 400 mls/hr Q6H IV 08/18/17 13:00 08/19/17 07:14 08/18/17 12:45 (Percocet 5-325 Mg) 1 tab Q3H PRN PO 08/18/17 11:15 (Toradol Inj) 15 mg Q6H PRN IV PUSH 08/18/17 13:00 08/20/17 12:59 (fentaNYL INJ) 25 mcg Q1H PRN IV PUSH 08/18/17 11:15 08/18/17 12:47 (Zofran Inj) 4 mg Q6H PRN IV PUSH 08/18/17 11:15 (Apresoline Inj) 10 mg Q4H PRN IV PUSH 08/18/17 11:15 (Lopressor Inj) 2.5 mg Q1H PRN IV PUSH 08/18/17 11:15 Potassium Chloride 100 ml @ 50 mls/hr UNSCH PRN IV 08/18/17 11:15 Potassium Chloride 100 ml @ 50 mls/hr UNSCH PRN IV 08/18/17 11:15 (KCl) 20 meq UNSCH PRN PO 08/18/17 11:15 (KCl) 40 meq UNSCH PRN PO 08/18/17 11:15 Magnesium Sulfate 2 gm/Sodium Chloride 104 ml @ 100 mls/hr UNSCH PRN IV 08/18/17 11:15 Magnesium Sulfate 2 gm/Sodium Chloride 104 ml @ 50 mls/hr UNSCH PRN IV 08/18/17 11:15 Calcium Chloride 1 gm/Sodium Chloride 110 ml @ 100 mls/hr UNSCH PRN IV 08/18/17 11:15 08/18/17 12:21 (Calcium Chloride Inj) 0.5 gm UNSCH PRN IV PUSH 08/18/17 11:15 Insulin Human Regular 100 units/ Sodium Chloride 100 ml @ 3 mls/hr TITRATE PRN IV 08/18/17 12:30 (D50w (Vial) Inj) 50 ml UNSCH PRN IV PUSH 08/18/17 11:15 (Sodium Bicarbonate 8.4% Inj) 50 meq UNSCH PRN IV PUSH 08/18/17 11:15 (Sodium Bicarbonate 8.4% Inj) 100 meq UNSCH PRN IV PUSH 08/18/17 11:15 (Duoneb Neb) 1 ampule Q2HR NEB PRN NEB 08/18/17 11:15 (Racepinephrine 2.25% Neb) 0.5 ml UNSCH X1 PRN NEB 08/18/17 11:15 08/20/17 11:14 Vital Signs / I&O Vital Signs Date Time Temp Pulse Resp B/P (MAP) Pulse Ox O2 Delivery O2 Flow Rate FiO2 08/18/17 12:26 99 40 08/18/17 12:11 99 40 08/18/17 12:02 99 50 08/18/17 04:10 81 16 94/54 (67) 97 08/18/17 03:00 75 08/18/17 00:21 66 08/17/17 23:40 98.3 78 16 107/62 (77) 97 08/17/17 21:35 71 08/17/17 21:13 98.0 92 16 130/79 (96) 95 08/17/17 18:00 70 08/17/17 17:00 72 08/17/17 16:00 80 08/17/17 15:30 97.9 74 17 101/65 (77) 98 08/17/17 15:00 80 08/17/17 14:00 66 08/17/17 13:00 72 I/O 08/17/17 08/17/17 08/17/17 08/18/17 08/18/17 08/18/17 07:00 15:00 23:00 07:00 15:00 23:00 Intake Total 480 ml 840 ml 240 ml 2800 ml Output Total 500 ml 1250 ml 450 ml 100 ml Balance -20 ml -410 ml -210 ml 2700 ml Intake Oral 480 ml 840 ml 240 ml IV Total 2300 ml Autotransfusion 500 ml Output Urine Total 500 ml 1250 ml 450 ml Estimated Blood Loss 100 ml # Bowel Movements 0 Physical Exam GENERAL: Intubated SKIN: Warm and dry. HEAD: Atraumatic. Normocephalic. EYES: Pupils equal and round. No scleral icterus. No injection or drainage. ENT: No nasal bleeding or discharge. Mucous membranes pink and moist. NECK: Trachea midline. No JVD. CARDIOVASCULAR: Regular rate and rhythm. RESPIRATORY: No accessory muscle use. Clear to auscultation. Breath sounds equal bilaterally. GASTROINTESTINAL: Abdomen soft, non-tender, nondistended. Hepatic and splenic margins not palpable. MUSCULOSKELETAL: Extremities without clubbing, cyanosis, or edema. No obvious deformities. NEUROLOGICAL: Intubated Imaging Last 24 hours Impressions Chest X-Ray 08/18/17 0000 Signed Impressions: Service Date/Time: Friday, August 18, 2017 12:04 - CONCLUSION: 1. Status post CABG. 2. Tiny 3 mm right apical pneumothorax. Right chest tube in place. 3. Mild left lower lung atelectasis. Alexander Bernal MD Assessment and Plan Problem List: (1) Myxoma of heart ICD Codes: D15.1 - Benign neoplasm of heart Status: Acute (2) mediansternomy (3) excision of myxoma Assessment and Plan 1) Left atrial myxoma Removal POD #0 2) No significant CAD 3) Mild PHTN secondary to obstructive pathology of myxoma 4) Plan for extubation Adam Grace DO Aug 18, 2017 13:03
[2017-08-18] MEDS: KETOROLAC TROMETHAMINE 30 MG/ML (IVP) VIAL IV PUSH PRN ×2 (13:49→19:54)
[2017-08-18] MEDS: LACTATED RINGER'S 1000 ML INJ 500 ML IV PRN ×2 (14:40→16:33)
[2017-08-18] MEDS: ALBUMIN 5% INJ 250 ML IV PRN ×2 (15:08→16:43)
[2017-08-18] MEDS: oxyCODONE/ACETAMINOPHEN 5 MG/325 MG TAB PO PRN ×2 (19:53→23:04)
[2017-08-19] VITALS (16 sets, daily range): BP systolic 82–126; BP diastolic 43–54; PULSE 64–84; RESP 16–20; TEMP 97.9–99.6; O2SAT 93–99
[2017-08-19] MEDS: ACETAMINOPHEN 1000 MG/100 ML 100 ML IV SCH ×2 (01:00→05:52)
[2017-08-19] MEDS: oxyCODONE/ACETAMINOPHEN 5 MG/325 MG TAB PO PRN ×4 (02:17→13:39)
[2017-08-19] MEDS: KETOROLAC TROMETHAMINE 30 MG/ML (IVP) VIAL IV PUSH PRN ×3 (02:18→21:34)
[2017-08-19] MEDS: SODIUM CHLOR 0.9% 1000 ML INJ 1,000 ML IV SCH (02:44)
--- NOTE | 2017-08-19 04:59 | RADRPT ---
EXAM DATE/TIME: 08/19/2017 03:44 [facility] COMPARISON: CHEST SINGLE AP, August 18, 2017, 12:04. INDICATIONS : Short of breath. MEDICAL HISTORY : Cardiovascular disease SURGICAL HISTORY : CABG. ENCOUNTER: Subsequent ACUITY: 2 days PAIN SCORE: 0/10 LOCATION: Bilateral chest FINDINGS: Interval extubation and removal of gastric tube. Right IJ catheter, right chest tube, and mediastina l drain stable in position. There is patchy opacity at the left lung base characteristic of a non-co nsolidative infiltrate or atelectasis. The right lung is clear. No evidence of pneumothorax. CONCLUSION: Small area of non-consolidative infiltrate or atelectasis at the left lung base. Quinton Miller MD on August 19, 2017 at 4:57 Board Certified Radiologist. This report was verified electronically.
[2017-08-19 05:11] LABS: HEMATOCRIT 25.8 % (35.0-46.0); HEMOGLOBIN 8.5 GM/DL (11.6-15.3); MEAN CELL VOLUME 88.5 FL (80.0-100.0); MEAN CORPUSCULAR HEMOGLOBIN 29.3 PG (27.0-34.0); MEAN CORPUSCULAR HGB CONC 33.1 % (32.0-36.0); MEAN PLATELET VOLUME 9.1 FL (7.0-11.0); PLATELET COUNT 122 TH/MM3 (150-450); RED BLOOD COUNT 2.91 MIL/MM3 (4.00-5.30); RED CELL DISTRIBUTION WIDTH 13.2 % (11.6-17.2); WHITE BLOOD COUNT 7.3 TH/MM3 (4.0-11.0)
[2017-08-19 05:20] LABS: BICARBONATE 26.3 MEQ/L (21.0-32.0); CALCIUM 7.9 MG/DL (8.5-10.1); CREATININE 0.56 MG/DL (0.50-1.00); MAGNESIUM 1.9 MG/DL (1.5-2.5)
[2017-08-19] MEDS: PANTOPRAZOLE SOD 40 MG DELAYED RELEASE TAB PO SCH (05:52)
[2017-08-19] MEDS ORDERED: DEXTROSE 50% IN WATER 50 ML VIAL(D50) IV PUSH PRN (09:30)
[2017-08-19] MEDS ORDERED: GLUCAGON 1 MG/ML VIAL OTHER PRN (09:30)
[2017-08-19] MEDS ORDERED: BISACODYL 10 MG SUPP RECTAL PRN (09:30)
[2017-08-19] MEDS ORDERED: SOD PHOSPHATE/SOD BIPHOSPHATE (ADULT) ENEMA 133ML RECTAL PRN (09:30)
[2017-08-19] MEDS: ATORVASTATIN 10 MG TAB PO SCH (09:50)
[2017-08-19] MEDS: ASPIRIN 81 MG CHEW TAB PO SCH (09:50)
[2017-08-19] MEDS: ESCITALOPRAM OXALATE 10 MG TAB PO SCH (09:50)
[2017-08-19] MEDS: SODIUM CHLORIDE 0.9% FLUSH 10 ML FLUSH IV FLUSH SCH ×2 (09:53→21:33)
[2017-08-19] MEDS: MAGNESIUM SULFATE 1 GM PREMIX 100 ML IV SCH ×2 (10:06→11:05)
--- NOTE | 2017-08-19 10:13 | PD.CAR.PN ---
CVT Progress Note Subjective/Hospital Course: This is a 57-year-old very pleasant female who was referred to Dr. Grace from Dr. Adria Noriega. Apparently, has been having some shortness of breath off and on for the past 2 years, increasing over the last 6 months and becoming more noticeable in the past couple weeks. 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 She has also noticed some gurgling in her chest. She has had a mild cough, occasional wheeze. No fevers or chills. She underwent an echocardiogram by Dr. Noriega which showed a myxoma measuring 5 x 5 x 5.3 x 4 x 2, enters the left ventricle during diastole and arises from the intraarterial septum. There was also some mild aortic regurgitation, mild mitral regurgitation, mild tricuspid regurgitation, ejection fraction of 60%. The patient was then referred to our Emergency Department for admission and evaluation by Dr. Grace. The patient underwent cardiac catheterization today, which showed nonobstructive coronary disease, ejection fraction of 60%, right atrial pressures of 3, PA pressure 54/18, wedge pressure 36. 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 PAST MEDICAL HISTORY: Hyperlipidemia, diverticulosis, colon polyp, actinic keratosis, anxiety, insomnia. She has had history of some mild spinal stenosis , 08/18 surgery today : Excision of left atrial myxoma, Patch closure of atrial septum with pericardium, AMA extubated after surgery crystalloid 2300cc, cell 500, EBL 1000cc 08/19 up in chair , pain controlled needs pulm toileting will need to start low dose coumadin / goal 2.0 x 6 weeks transfer to stepdown Objective: GENERAL: A&O x 3 SKIN: Warm and dry. prevena dressing to chest HEAD: Normocephalic. EYES: No scleral icterus. No injection or drainage. NECK: Supple, trachea midline. No JVD or lymphadenopathy. CARDIOVASCULAR: Regular rate and rhythm without murmurs, gallops, or rubs. RESPIRATORY: Breath sounds equal bilaterally. No accessory muscle use. chest tube , no air leak / drained 160cc/ 12 hrs GASTROINTESTINAL: Abdomen soft, non-tender, nondistended. MUSCULOSKELETAL: No cyanosis, or edema. BACK: Nontender without obvious deformity. No CVA tenderness. Vital Signs Date Time Temp Pulse Resp B/P (MAP) Pulse Ox O2 Delivery O2 Flow Rate FiO2 08/19/17 08:10 17 08/19/17 07:58 99 Nasal Cannula 2.00 08/19/17 03:00 65 08/19/17 03:00 99.6 64 20 106/49 (68) 99 Arterial Line 08/19/17 03:00 99 Nasal Cannula 2.00 08/18/17 23:00 99 Nasal Cannula 2.00 08/18/17 23:00 64 08/18/17 23:00 99.0 66 16 96/52 (67) 97 89/48 (62) 08/18/17 20:58 98 Nasal Cannula 3.00 08/18/17 19:00 98.5 68 16 87/49 (62) 99 87/46 (60) 08/18/17 19:00 99 Nasal Cannula 3.00 08/18/17 19:00 67 08/18/17 17:12 14 08/18/17 15:00 98 Nasal Cannula 3.00 08/18/17 15:00 98.4 71 16 82/53 (63) 98 92/57 (69) 08/18/17 15:00 68 08/18/17 14:49 14 08/18/17 14:44 98.2 08/18/17 13:25 99 Nasal Cannula 3.00 08/18/17 13:25 98 Nasal Cannula 3.00 08/18/17 13:25 99 Nasal Cannula 3 08/18/17 12:26 99 40 08/18/17 12:25 99 Mechanical Ventilator 40 08/18/17 12:25 40 08/18/17 12:11 99 40 08/18/17 12:02 99 50 08/18/17 12:00 50 08/18/17 12:00 99 Mechanical Ventilator 50 08/18/17 12:00 98.2 81 10 120/64 (82) 99 100/56 (71) 08/18/17 12:00 82 08/18/17 11:52 98.2 Labs: Laboratory Tests Test 08/19/17 04:42 White Blood Count 7.3 TH/MM3 (4.0-11.0) Red Blood Count 2.91 MIL/MM3 (4.00-5.30) Hemoglobin 8.5 GM/DL (11.6-15.3) Hematocrit 25.8 % (35.0-46.0) Mean Corpuscular Volume 88.5 FL (80.0-100.0) Mean Corpuscular Hemoglobin 29.3 PG (27.0-34.0) Mean Corpuscular Hemoglobin Concent 33.1 % (32.0-36.0) Red Cell Distribution Width 13.2 % (11.6-17.2) Platelet Count 122 TH/MM3 (150-450) Mean Platelet Volume 9.1 FL (7.0-11.0) Blood Urea Nitrogen 12 MG/DL (7-18) Creatinine 0.56 MG/DL (0.50-1.00) Random Glucose 149 MG/DL (74-106) Calcium Level 7.9 MG/DL (8.5-10.1) Magnesium Level 1.9 MG/DL (1.5-2.5) Sodium Level 140 MEQ/L (136-145) Potassium Level 4.3 MEQ/L (3.5-5.1) Chloride Level 107 MEQ/L (98-107) Carbon Dioxide Level 26.3 MEQ/L (21.0-32.0) Anion Gap 7 MEQ/L (5-15) Estimat Glomerular Filtration Rate 111 ML/MIN (>89) Result Diagram: 08/19/172 08/19/17 044 (1) Myxoma of heart (2) mediansternomy (3) excision of myxoma Plan: ASA, low dose diuretic/ + 7 kg hold on BB HR 60's pulm toileting OOB ambulate CM eval for [facility] start low dose coumadin when chest tubes out / goal 2.0 x 6 weeks Ann Shepard Aug 19, 2017 10:13
[2017-08-19] MEDS ORDERED: POTASSIUM CHLORIDE 10 MEQ CAP PO ONE (10:30)
[2017-08-19] MEDS ORDERED: FUROSEMIDE 20 MG/2 ML VIAL IV PUSH ONE (10:30)
[2017-08-19] MEDS: MAGNESIUM HYDROXIDE SUSP 30 ML CUP PO SCH (10:30)
[2017-08-19] MEDS: INSULIN ASPART SUPPLEMENTAL SCALE SQ SCH ×4 (10:49→21:34)
[2017-08-19] MEDS ORDERED: ACETAMINOPHEN 325 MG TAB PO PRN (11:00)
[2017-08-19] MEDS ORDERED: ACETAMINOPHEN 650 MG SUPP RECTAL PRN (11:00)
[2017-08-19] MEDS: RESP: ALBUTEROL 2.5 MG/IPRATROPIUM 0.5 MG NEB (SCH) NEB ×2 (12:44→19:46)
--- NOTE | 2017-08-19 14:55 | EKG ---
Date Performed: 08/19/2017 Time Performed: 05:22:44 PTAGE: 57 years EKG: Sinus rhythm Lateral ST elevation suggests early repolarization Borderline ECG NO PREVIOUS TRACING DOCTOR: Jefe Dickson Interpretating Date/Time 08/19/2017 14:53:46
--- NOTE | 2017-08-19 15:05 | HHI.PR ---
Subjective Remarks Follow up left atrial myxoma 08/19/17-patient seen and examined; s/p excision of left atrial myxoma 08/18/17; she was seating in the chair and complains of sternum pain along with some shortness of breath. Afebrile Objective Vitals Vital Signs Date Time Temp Pulse Resp B/P (MAP) Pulse Ox O2 Delivery O2 Flow Rate FiO2 08/19/17 14:04 74 08/19/17 11:00 95 Nasal Cannula 2.00 08/19/17 11:00 69 08/19/17 11:00 97.9 69 18 126/54 (78) 95 08/19/17 08:10 17 08/19/17 07:58 99 Nasal Cannula 2.00 08/19/17 07:00 98 Nasal Cannula 2.00 08/19/17 07:00 98.6 65 18 111/44 (66) 98 08/19/17 07:00 65 08/19/17 03:00 65 08/19/17 03:00 99.6 64 20 106/49 (68) 99 Arterial Line 08/19/17 03:00 99 Nasal Cannula 2.00 08/18/17 23:00 99 Nasal Cannula 2.00 08/18/17 23:00 64 08/18/17 23:00 99.0 66 16 96/52 (67) 97 89/48 (62) 08/18/17 20:58 98 Nasal Cannula 3.00 08/18/17 19:00 98.5 68 16 87/49 (62) 99 87/46 (60) 08/18/17 19:00 99 Nasal Cannula 3.00 08/18/17 19:00 67 08/18/17 17:12 14 I/O 08/18/17 08/18/17 08/18/17 08/19/17 08/19/17 08/19/17 07:00 15:00 23:00 07:00 15:00 23:00 Intake Total 240 ml 3600 ml 2340 ml 368 ml 200 ml Output Total 450 ml 100 ml 1140 ml 610 ml Balance -210 ml 3500 ml 1200 ml -242 ml 200 ml Intake Oral 240 ml 240 ml 240 ml IV Total 3100 ml 2100 ml 128 ml 200 ml Autotransfusion 500 ml Output Urine Total 450 ml 1020 ml 450 ml Gastric Drainage Total 0 ml Chest Tube Drainage Total 120 ml 160 ml Estimated Blood Loss 100 ml # Bowel Movements 0 0 Result Diagram: 08/19/17 0442 08/19/17 0442 Imaging Last Impressions Chest X-Ray 08/19/17 0500 Signed Impressions: Service Date/Time: Saturday, August 19, 2017 03:44 - CONCLUSION: Small area of non-consolidative infiltrate or atelectasis at the left lung base. Quinton Miller MD Carotid Artery Ultrasound 08/14/17 0000 Signed Impressions: Service Date/Time: July 21:21 - CONCLUSION: Within normal limits. No significant carotid plaque or narrowing on either side. Javier Barrera MD Objective Remarks GENERAL: NAD SKIN: Warm and dry. HEAD: Normocephalic. EYES: No scleral icterus. No injection or drainage. NECK: Supple, trachea midline. No JVD or lymphadenopathy. CARDIOVASCULAR: Regular rate and rhythm without murmurs, gallops, or rubs. sternum dressing in place RESPIRATORY: Breath sounds equal bilaterally. No accessory muscle use.chest tube in place GASTROINTESTINAL: Abdomen soft, non-tender, nondistended. MUSCULOSKELETAL: No cyanosis, or edema. BACK: Nontender without obvious deformity. No CVA tenderness. 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 Hyperlipidemia continue Rosuvastatin Depression continue escitalopram Insomnia continue Zolpidem as needed. DVT prophylaxis as per Cardiology Gaudencio Patten MD Aug 19, 2017 15:05
--- NOTE | 2017-08-19 17:02 | PD.CARD.PN ---
Subjective Subjective Remarks Appropriate chest pain Extubated yesterday Transferred to [facility] Up in the chair Objective Medications Current Medications Medications (Trade) Dose Ordered Sig/Melody Route Start Time Stop Time Status Last Admin (Lipitor) 10 mg DAILY PO 08/15/17 09:00 08/19/17 09:50 (Pill Splitter) 1 ea UNSCH PRN OTHER 08/14/17 17:45 (Lexapro) 20 mg DAILY PO 08/16/17 09:00 08/19/17 09:50 (NS Flush) 2 ml BID IV FLUSH 08/18/17 21:00 08/19/17 09:53 (NS Flush) 2 ml UNSCH PRN IV FLUSH 08/18/17 11:15 Cefazolin Sodium 1000 mg/Sodium Chloride 100 ml @ 200 mls/hr Q8H IV 08/18/17 17:00 08/20/17 01:29 08/19/17 09:52 (Aspirin Chew) 81 mg DAILY PO 08/19/17 09:00 08/19/17 09:50 (Protonix) 40 mg DAILY@06 PO 08/19/17 06:00 08/19/17 05:52 (Tylenol) 650 mg Q4H PRN PO 08/19/17 11:00 (Percocet 5-325 Mg) 1 tab Q3H PRN PO 08/18/17 11:15 08/19/17 13:39 (Toradol Inj) 15 mg Q6H PRN IV PUSH 08/18/17 13:00 08/20/17 12:59 08/19/17 13:52 (fentaNYL INJ) 25 mcg Q1H PRN IV PUSH 08/18/17 11:15 08/19/17 05:52 (Zofran Inj) 4 mg Q6H PRN IV PUSH 08/18/17 11:15 08/19/17 05:51 (Apresoline Inj) 10 mg Q4H PRN IV PUSH 08/18/17 11:15 (Duoneb Neb) 1 ampule Q2HR NEB PRN NEB 08/18/17 11:15 (Duoneb Neb) 1 ampule Q6HR WHILE AWAKE NEB NEB 08/19/17 14:00 08/21/17 13:59 08/19/17 12:44 (Colace) 100 mg BID PO 08/19/17 21:00 (Theragran M Tab) 1 tab DAILY PO 08/20/17 09:00 (Milk Of Magnesia Liq) 30 ml DAILY PO 08/19/17 10:30 (Dulcolax Supp) 10 mg UNSCH PRN RECTAL 08/19/17 09:30 (Miralax) 17 gm DAILY PO 08/20/17 09:00 (Senokot) 8.6 mg HS PO 08/19/17 21:00 (Fleets Enema (Adult)) 118 ml UNSCH PRN RECTAL 08/19/17 09:30 (NovoLOG SUPPLEMENTAL SCALE) 1 02,06,10,14,18,22 SQ 08/19/17 10:00 08/20/17 06:01 08/19/17 14:02 (D50w (Vial) Inj) 50 ml UNSCH PRN IV PUSH 08/19/17 09:30 (Glucagon Inj) 1 mg UNSCH PRN OTHER 08/19/17 09:30 (NovoLOG SUPPLEMENTAL SCALE) 1 ACHS SQ 08/20/17 12:00 (Flu (Quadrivalent) Vaccine Inj) 0.5 ml ONCE ONCE IM 08/23/17 09:00 08/23/17 09:01 (Pneumovax-23 Inj) 25 mcg ONCE ONCE IM 08/23/17 09:00 08/23/17 09:01 Vital Signs / I&O Vital Signs Date Time Temp Pulse Resp B/P (MAP) Pulse Ox O2 Delivery O2 Flow Rate FiO2 08/19/17 16:58 75 18 90/43 (59) 97 08/19/17 16:58 97 Room Air 08/19/17 16:16 75 08/19/17 14:04 74 08/19/17 11:00 95 Nasal Cannula 2.00 08/19/17 11:00 69 08/19/17 11:00 97.9 69 18 126/54 (78) 95 08/19/17 08:10 17 08/19/17 07:58 99 Nasal Cannula 2.00 08/19/17 07:00 98 Nasal Cannula 2.00 08/19/17 07:00 98.6 65 18 111/44 (66) 98 08/19/17 07:00 65 08/19/17 03:00 65 08/19/17 03:00 99.6 64 20 106/49 (68) 99 Arterial Line 08/19/17 03:00 99 Nasal Cannula 2.00 08/18/17 23:00 99 Nasal Cannula 2.00 08/18/17 23:00 64 08/18/17 23:00 99.0 66 16 96/52 (67) 97 89/48 (62) 08/18/17 20:58 98 Nasal Cannula 3.00 08/18/17 19:00 98.5 68 16 87/49 (62) 99 87/46 (60) 08/18/17 19:00 99 Nasal Cannula 3.00 08/18/17 19:00 67 08/18/17 17:12 14 I/O 08/18/17 08/18/17 08/18/17 08/19/17 08/19/17 08/19/17 07:00 15:00 23:00 07:00 15:00 23:00 Intake Total 240 ml 3600 ml 2340 ml 368 ml 200 ml Output Total 450 ml 100 ml 1140 ml 610 ml Balance -210 ml 3500 ml 1200 ml -242 ml 200 ml Intake Oral 240 ml 240 ml 240 ml IV Total 3100 ml 2100 ml 128 ml 200 ml Autotransfusion 500 ml Output Urine Total 450 ml 1020 ml 450 ml Gastric Drainage Total 0 ml Chest Tube Drainage Total 120 ml 160 ml Estimated Blood Loss 100 ml # Bowel Movements 0 0 Physical Exam GENERAL: NAD, AAOx3 SKIN: Warm and dry. HEAD: Atraumatic. Normocephalic. EYES: Pupils equal and round. No scleral icterus. No injection or drainage. ENT: No nasal bleeding or discharge. Mucous membranes pink and moist. NECK: Trachea midline. No JVD. CARDIOVASCULAR: Regular rate and rhythm. Sternotomy clean/dry RESPIRATORY: No accessory muscle use. Clear to auscultation. Breath sounds equal bilaterally. GASTROINTESTINAL: Abdomen soft, non-tender, nondistended. Hepatic and splenic margins not palpable. MUSCULOSKELETAL: Extremities without clubbing, cyanosis, or edema. No obvious deformities. NEUROLOGICAL: No focal deficits Laboratory Laboratory Tests Test 08/19/17 04:42 White Blood Count 7.3 TH/MM3 Red Blood Count 2.91 MIL/MM3 Hemoglobin 8.5 GM/DL Hematocrit 25.8 % Mean Corpuscular Volume 88.5 FL Mean Corpuscular Hemoglobin 29.3 PG Mean Corpuscular Hemoglobin Concent 33.1 % Red Cell Distribution Width 13.2 % Platelet Count 122 TH/MM3 Mean Platelet Volume 9.1 FL Blood Urea Nitrogen 12 MG/DL Creatinine 0.56 MG/DL Random Glucose 149 MG/DL Calcium Level 7.9 MG/DL Magnesium Level 1.9 MG/DL Sodium Level 140 MEQ/L Potassium Level 4.3 MEQ/L Chloride Level 107 MEQ/L Carbon Dioxide Level 26.3 MEQ/L Anion Gap 7 MEQ/L Estimat Glomerular Filtration Rate 111 ML/MIN Imaging Last 24 hours Impressions Chest X-Ray 08/19/17 0500 Signed Impressions: Service Date/Time: Saturday, August 19, 2017 03:44 - CONCLUSION: Small area of non-consolidative infiltrate or atelectasis at the left lung base. Quinton Miller MD Assessment and Plan Problem List: (1) Myxoma of heart ICD Codes: D15.1 - Benign neoplasm of heart Status: Acute (2) mediansternomy (3) excision of myxoma Assessment and Plan 1) Left atrial myxoma Removal POD #1 2) No significant CAD 3) Mild PHTN secondary to obstructive pathology of myxoma 4) Coumadin per CT surgery Adam Grace DO Aug 19, 2017 17:02
[2017-08-19] MEDS: SENNOSIDES 8.6 MG TAB PO SCH (21:34)
[2017-08-19] MEDS: DOCUSATE SODIUM 100 MG CAP PO SCH (21:34)
[2017-08-20] VITALS (27 sets, daily range): BP systolic 90–108; BP diastolic 51–55; PULSE 75–98; RESP 16–20; TEMP 98–98.9; O2SAT 82–97
[2017-08-20] MEDS: oxyCODONE/ACETAMINOPHEN 5 MG/325 MG TAB PO PRN ×6 (00:19→23:45)
[2017-08-20] MEDS: INSULIN ASPART SUPPLEMENTAL SCALE SQ SCH ×5 (01:32→21:00)
[2017-08-20 04:58] LABS: AUTOMATED NEUTROPHIL # 5.6 TH/MM3 (1.8-7.7); BASOPHIL % 0.3 % (0.0-2.0); EOSINOPHIL # 0.1 TH/MM3 (0-0.4); EOSINOPHIL % 0.9 % (0.0-4.0); HEMATOCRIT 24.9 % (35.0-46.0); HEMOGLOBIN 8.4 GM/DL (11.6-15.3); LYMPHOCYTE # 1.3 TH/MM3 (1.0-4.8); MEAN CELL VOLUME 88.2 FL (80.0-100.0); MEAN CORPUSCULAR HEMOGLOBIN 29.6 PG (27.0-34.0); MEAN CORPUSCULAR HGB CONC 33.5 % (32.0-36.0); MEAN PLATELET VOLUME 8.4 FL (7.0-11.0); MONOCYTE # 0.7 TH/MM3 (0-0.9); NEUT % 72.8 % (16.0-70.0); PLATELET COUNT 123 TH/MM3 (150-450); RED BLOOD COUNT 2.82 MIL/MM3 (4.00-5.30); RED CELL DISTRIBUTION WIDTH 13.4 % (11.6-17.2); WHITE BLOOD COUNT 7.7 TH/MM3 (4.0-11.0)
[2017-08-20 05:22] LABS: BICARBONATE 30.2 MEQ/L (21.0-32.0); CALCIUM 8.1 MG/DL (8.5-10.1); CREATININE 0.68 MG/DL (0.50-1.00); MAGNESIUM 2.2 MG/DL (1.5-2.5)
[2017-08-20] MEDS: PANTOPRAZOLE SOD 40 MG DELAYED RELEASE TAB PO SCH (05:24)
[2017-08-20] MEDS: RESP: ALBUTEROL 2.5 MG/IPRATROPIUM 0.5 MG NEB (SCH) NEB (07:29)
[2017-08-20] MEDS: POLYETHYLENE GLYCOL 17 GM PKG PO SCH (09:00)
[2017-08-20] MEDS: MAGNESIUM HYDROXIDE SUSP 30 ML CUP PO SCH (09:00)
[2017-08-20] MEDS: DOCUSATE SODIUM 100 MG CAP PO SCH ×2 (09:00→20:56)
[2017-08-20] MEDS: ESCITALOPRAM OXALATE 10 MG TAB PO SCH (09:17)
[2017-08-20] MEDS: ASPIRIN 81 MG CHEW TAB PO SCH (09:17)
[2017-08-20] MEDS: MULTIVITAMINS/MINERALS THERAPEUTIC TAB PO SCH (09:17)
[2017-08-20] MEDS: SODIUM CHLORIDE 0.9% FLUSH 10 ML FLUSH IV FLUSH SCH ×2 (09:18→20:56)
[2017-08-20] MEDS: ATORVASTATIN 10 MG TAB PO SCH (09:18)
--- NOTE | 2017-08-20 09:53 | PD.CAR.PN ---
CVT Progress Note CVT: POD #: 2 Subjective/Hospital Course: This is a 57-year-old very pleasant female who was referred to Dr. Grace from Dr. dAria Noriega. Apparently, has been having some shortness of breath off and on for the past 2 years, increasing over the last 6 months and becoming more noticeable in the past couple weeks. 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 She has also noticed some gurgling in her chest. She has had a mild cough, occasional wheeze. No fevers or chills. She underwent an echocardiogram by Dr. Noriega which showed a myxoma measuring 5 x 5 x 5.3 x 4 x 2, enters the left ventricle during diastole and arises from the intraarterial septum. There was also some mild aortic regurgitation, mild mitral regurgitation, mild tricuspid regurgitation, ejection fraction of 60%. The patient was then referred to our Emergency Department for admission and evaluation by Dr. Grace. The patient underwent cardiac catheterization today, which showed nonobstructive coronary disease, ejection fraction of 60%, right atrial pressures of 3, PA pressure 54/18, wedge pressure 36. 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 PAST MEDICAL HISTORY: Hyperlipidemia, diverticulosis, colon polyp, actinic keratosis, anxiety, insomnia. She has had history of some mild spinal stenosis , 08/18 surgery today : Excision of left atrial myxoma, Patch closure of atrial septum with pericardium, AMA extubated after surgery crystalloid 2300cc, cell 500, EBL 1000cc 08/19 up in chair , pain controlled needs pulm toileting will need to start low dose coumadin / goal 2.0 x 6 weeks transfer to stepdown 08/20/17 Doing well, no c/o Objective: Vital Signs Date Time Temp Pulse Resp B/P (MAP) Pulse Ox O2 Delivery O2 Flow Rate FiO2 08/20/17 09:00 78 08/20/17 08:00 95 Room Air 08/20/17 08:00 98.0 82 18 90/53 (65) 96 08/20/17 08:00 82 08/20/17 07:29 97 21 08/20/17 07:00 76 08/20/17 06:00 75 08/20/17 05:00 78 08/20/17 04:00 79 08/20/17 04:00 96 Room Air 08/20/17 03:30 98.2 79 16 98/54 (69) 96 08/20/17 03:00 78 08/20/17 02:00 81 08/20/17 01:00 77 08/20/17 00:00 80 08/19/17 23:30 93 Room Air 08/19/17 23:30 99.3 76 16 96/52 (67) 93 08/19/17 23:00 84 08/19/17 22:00 82 08/19/17 21:00 98/52 (67) 08/19/17 21:00 82 08/19/17 20:00 98.5 72 16 82/52 (62) 94 08/19/17 20:00 94 Room Air 08/19/17 20:00 72 08/19/17 19:48 95 21 08/19/17 19:00 72 08/19/17 18:12 78 08/19/17 17:19 80 08/19/17 16:58 75 18 90/43 (59) 97 08/19/17 16:58 97 Room Air 08/19/17 16:16 75 08/19/17 14:04 74 08/19/17 11:00 95 Nasal Cannula 2.00 08/19/17 11:00 69 08/19/17 11:00 97.9 69 18 126/54 (78) 95 Labs: Laboratory Tests Test 08/20/17 04:30 White Blood Count 7.7 TH/MM3 (4.0-11.0) Red Blood Count 2.82 MIL/MM3 (4.00-5.30) Hemoglobin 8.4 GM/DL (11.6-15.3) Hematocrit 24.9 % (35.0-46.0) Mean Corpuscular Volume 88.2 FL (80.0-100.0) Mean Corpuscular Hemoglobin 29.6 PG (27.0-34.0) Mean Corpuscular Hemoglobin Concent 33.5 % (32.0-36.0) Red Cell Distribution Width 13.4 % (11.6-17.2) Platelet Count 123 TH/MM3 (150-450) Mean Platelet Volume 8.4 FL (7.0-11.0) Neutrophils (%) (Auto) 72.8 % (16.0-70.0) Lymphocytes (%) (Auto) 17.0 % (9.0-44.0) Monocytes (%) (Auto) 9.0 % (0.0-8.0) Eosinophils (%) (Auto) 0.9 % (0.0-4.0) Basophils (%) (Auto) 0.3 % (0.0-2.0) Neutrophils # (Auto) 5.6 TH/MM3 (1.8-7.7) Lymphocytes # (Auto) 1.3 TH/MM3 (1.0-4.8) Monocytes # (Auto) 0.7 TH/MM3 (0-0.9) Eosinophils # (Auto) 0.1 TH/MM3 (0-0.4) Basophils # (Auto) 0.0 TH/MM3 (0-0.2) CBC Comment DIFF FINAL Differential Comment Prothrombin Time 10.0 SEC (9.8-11.6) Prothromb Time International Ratio 1.0 RATIO Blood Urea Nitrogen 18 MG/DL (7-18) Creatinine 0.68 MG/DL (0.50-1.00) Random Glucose 95 MG/DL (74-106) Calcium Level 8.1 MG/DL (8.5-10.1) Magnesium Level 2.2 MG/DL (1.5-2.5) Sodium Level 142 MEQ/L (136-145) Potassium Level 4.6 MEQ/L (3.5-5.1) Chloride Level 106 MEQ/L (98-107) Carbon Dioxide Level 30.2 MEQ/L (21.0-32.0) Anion Gap 6 MEQ/L (5-15) Estimat Glomerular Filtration Rate 89 ML/MIN (>89) Result Diagram: 08/20/1742908/20/17429 Cardiovascular: RRR Telemetry: NSR Pulmonary: CTA GI/: NABS, NT Incision: dry and intact CT: 120ml/12hrs Plan: Remove chest tubes Ambulate x 6, up to chair Diurese - weight up ~6kg No BB due to hypotension Coumadin Daily INR (1) Myxoma of heart (2) mediansternomy (3) excision of myxoma Plan: ASA, low dose diuretic/ + 7 kg hold on BB HR 60's pulm toileting OOB ambulate CM eval for [facility] start low dose coumadin when chest tubes out / goal 2.0 x 6 weeks Faith oHdge MD Aug 20, 2017 09:53
--- NOTE | 2017-08-20 11:42 | HHI.PR ---
Subjective Remarks Follow up left atrial myxoma 08/19/17-patient seen and examined; s/p excision of left atrial myxoma 08/18/17; she was seating in the chair and complains of sternum pain along with some shortness of breath. Afebrile 08/20/17-patient seen and examined; complains of SOB but no chest pain. Afebrile. states she has been ambulated Objective Vitals Vital Signs Date Time Temp Pulse Resp B/P (MAP) Pulse Ox O2 Delivery O2 Flow Rate FiO2 08/20/17 11:35 98.4 80 18 101/51 (68) 96 08/20/17 11:34 95 Room Air 08/20/17 11:00 86 08/20/17 10:16 20 08/20/17 10:00 75 08/20/17 09:00 78 08/20/17 08:00 95 Room Air 08/20/17 08:00 98.0 82 18 90/53 (65) 96 08/20/17 08:00 82 08/20/17 07:29 97 21 08/20/17 07:00 76 08/20/17 06:00 75 08/20/17 05:00 78 08/20/17 04:00 79 08/20/17 04:00 96 Room Air 08/20/17 03:30 98.2 79 16 98/54 (69) 96 08/20/17 03:00 78 08/20/17 02:00 81 08/20/17 01:00 77 08/20/17 00:00 80 08/19/17 23:30 93 Room Air 08/19/17 23:30 99.3 76 16 96/52 (67) 93 08/19/17 23:00 84 08/19/17 22:00 82 08/19/17 21:00 98/52 (67) 08/19/17 21:00 82 08/19/17 20:00 98.5 72 16 82/52 (62) 94 08/19/17 20:00 94 Room Air 08/19/17 20:00 72 08/19/17 19:48 95 21 08/19/17 19:00 72 08/19/17 18:12 78 08/19/17 17:19 80 08/19/17 16:58 75 18 90/43 (59) 97 08/19/17 16:58 97 Room Air 08/19/17 16:16 75 08/19/17 14:04 74 I/O 08/19/17 08/19/17 08/19/17 08/20/17 08/20/17 08/20/17 07:00 15:00 23:00 07:00 15:00 23:00 Intake Total 368 ml 200 ml 660 ml 700 ml Output Total 610 ml 200 ml 570 ml Balance -242 ml 200 ml 460 ml 130 ml Intake Oral 240 ml 560 ml 600 ml IV Total 128 ml 200 ml 100 ml 100 ml Output Urine Total 450 ml 450 ml Chest Tube Drainage Total 160 ml 200 ml 120 ml # Voids 1 # Bowel Movements 0 0 Result Diagram: 08/20/17 0430 08/20/17 0430 Objective Remarks GENERAL: NAD SKIN: Warm and dry. HEAD: Normocephalic. EYES: No scleral icterus. No injection or drainage. NECK: Supple, trachea midline. No JVD or lymphadenopathy. CARDIOVASCULAR: Regular rate and rhythm without murmurs, gallops, or rubs. sternum dressing in place RESPIRATORY: Breath sounds equal bilaterally. No accessory muscle use.chest tube in place GASTROINTESTINAL: Abdomen soft, non-tender, nondistended. MUSCULOSKELETAL: No cyanosis, or edema. BACK: Nontender without obvious deformity. No CVA tenderness. 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 Continue with current treatment Hyperlipidemia continue Rosuvastatin Depression continue escitalopram Insomnia continue Zolpidem as needed. DVT prophylaxis as per Cardiology Gaudencio Patten MD Aug 20, 2017 11:42
[2017-08-20] MEDS ORDERED: WARFARIN SOD 3 MG TAB PO SCH (16:00)
--- NOTE | 2017-08-20 17:35 | PD.CARD.PN ---
Subjective Subjective Remarks Patient was seen this morning, late entry Up in the chair Objective Medications Current Medications Medications (Trade) Dose Ordered Sig/Melody Route Start Time Stop Time Status Last Admin (Lipitor) 10 mg DAILY PO 08/15/17 09:00 08/20/17 09:18 (Pill Splitter) 1 ea UNSCH PRN OTHER 08/14/17 17:45 (Lexapro) 20 mg DAILY PO 08/16/17 09:00 08/20/17 09:17 (NS Flush) 2 ml BID IV FLUSH 08/18/17 21:00 08/20/17 09:18 (NS Flush) 2 ml UNSCH PRN IV FLUSH 08/18/17 11:15 (Aspirin Chew) 81 mg DAILY PO 08/19/17 09:00 08/20/17 09:17 (Protonix) 40 mg DAILY@06 PO 08/19/17 06:00 08/20/17 05:24 (Tylenol) 650 mg Q4H PRN PO 08/19/17 11:00 (Percocet 5-325 Mg) 1 tab Q3H PRN PO 08/18/17 11:15 08/20/17 13:48 (Zofran Inj) 4 mg Q6H PRN IV PUSH 08/18/17 11:15 08/19/17 05:51 (Apresoline Inj) 10 mg Q4H PRN IV PUSH 08/18/17 11:15 (Duoneb Neb) 1 ampule Q2HR NEB PRN NEB 08/18/17 11:15 (Colace) 100 mg BID PO 08/19/17 21:00 08/19/17 21:34 (Theragran M Tab) 1 tab DAILY PO 08/20/17 09:00 08/20/17 09:17 (Milk Of Magnesia Liq) 30 ml DAILY PO 08/19/17 10:30 (Miralax) 17 gm DAILY PO 08/20/17 09:00 (Senokot) 8.6 mg HS PO 08/19/17 21:00 08/19/17 21:34 (Fleets Enema (Adult)) 118 ml UNSCH PRN RECTAL 08/19/17 09:30 (D50w (Vial) Inj) 50 ml UNSCH PRN IV PUSH 08/19/17 09:30 (Glucagon Inj) 1 mg UNSCH PRN OTHER 08/19/17 09:30 (NovoLOG SUPPLEMENTAL SCALE) 1 ACHS SQ 08/20/17 12:00 (Flu (Quadrivalent) Vaccine Inj) 0.5 ml ONCE ONCE IM 08/23/17 09:00 08/23/17 09:01 (Pneumovax-23 Inj) 25 mcg ONCE ONCE IM 08/23/17 09:00 08/23/17 09:01 (Lasix Inj) 40 mg BID@18 IV PUSH 08/20/17 18:00 (Coumadin) 3 mg DAILY@16 PO 08/20/17 16:00 Vital Signs / I&O Vital Signs Date Time Temp Pulse Resp B/P (MAP) Pulse Ox O2 Delivery O2 Flow Rate FiO2 08/20/17 13:00 78 08/20/17 12:00 82 08/20/17 11:35 98.4 80 18 101/51 (68) 96 08/20/17 11:34 95 Room Air 08/20/17 11:00 86 08/20/17 10:16 20 08/20/17 10:00 75 08/20/17 09:00 78 08/20/17 08:00 95 Room Air 08/20/17 08:00 98.0 82 18 90/53 (65) 96 08/20/17 08:00 82 08/20/17 07:29 97 21 08/20/17 07:00 76 08/20/17 06:00 75 08/20/17 05:00 78 08/20/17 04:00 79 08/20/17 04:00 96 Room Air 08/20/17 03:30 98.2 79 16 98/54 (69) 96 08/20/17 03:00 78 08/20/17 02:00 81 08/20/17 01:00 77 08/20/17 00:00 80 08/19/17 23:30 93 Room Air 08/19/17 23:30 99.3 76 16 96/52 (67) 93 08/19/17 23:30 93 21 08/19/17 23:00 84 08/19/17 22:00 82 08/19/17 21:00 98/52 (67) 08/19/17 21:00 82 08/19/17 20:00 98.5 72 16 82/52 (62) 94 08/19/17 20:00 94 Room Air 08/19/17 20:00 72 08/19/17 19:48 95 21 08/19/17 19:00 72 08/19/17 18:12 78 I/O 08/19/17 08/19/17 08/19/17 08/20/17 08/20/17 08/20/17 07:00 15:00 23:00 07:00 15:00 23:00 Intake Total 368 ml 200 ml 660 ml 700 ml Output Total 610 ml 200 ml 570 ml Balance -242 ml 200 ml 460 ml 130 ml Intake Oral 240 ml 560 ml 600 ml IV Total 128 ml 200 ml 100 ml 100 ml Output Urine Total 450 ml 450 ml Chest Tube Drainage Total 160 ml 200 ml 120 ml # Voids 1 # Bowel Movements 0 0 Physical Exam GENERAL: NAD, AAOx3 SKIN: Warm and dry. HEAD: Atraumatic. Normocephalic. EYES: Pupils equal and round. No scleral icterus. No injection or drainage. ENT: No nasal bleeding or discharge. Mucous membranes pink and moist. NECK: Trachea midline. No JVD. CARDIOVASCULAR: Regular rate and rhythm. Sternotomy clean/dry RESPIRATORY: No accessory muscle use. Clear to auscultation. Breath sounds equal bilaterally. GASTROINTESTINAL: Abdomen soft, non-tender, nondistended. Hepatic and splenic margins not palpable. MUSCULOSKELETAL: Extremities without clubbing, cyanosis, or edema. No obvious deformities. NEUROLOGICAL: No focal deficits Laboratory Laboratory Tests Test 08/20/17 04:30 White Blood Count 7.7 TH/MM3 Red Blood Count 2.82 MIL/MM3 Hemoglobin 8.4 GM/DL Hematocrit 24.9 % Mean Corpuscular Volume 88.2 FL Mean Corpuscular Hemoglobin 29.6 PG Mean Corpuscular Hemoglobin Concent 33.5 % Red Cell Distribution Width 13.4 % Platelet Count 123 TH/MM3 Mean Platelet Volume 8.4 FL Neutrophils (%) (Auto) 72.8 % Lymphocytes (%) (Auto) 17.0 % Monocytes (%) (Auto) 9.0 % Eosinophils (%) (Auto) 0.9 % Basophils (%) (Auto) 0.3 % Neutrophils # (Auto) 5.6 TH/MM3 Lymphocytes # (Auto) 1.3 TH/MM3 Monocytes # (Auto) 0.7 TH/MM3 Eosinophils # (Auto) 0.1 TH/MM3 Basophils # (Auto) 0.0 TH/MM3 CBC Comment DIFF FINAL Differential Comment Prothrombin Time 10.0 SEC Prothromb Time International Ratio 1.0 RATIO Blood Urea Nitrogen 18 MG/DL Creatinine 0.68 MG/DL Random Glucose 95 MG/DL Calcium Level 8.1 MG/DL Magnesium Level 2.2 MG/DL Sodium Level 142 MEQ/L Potassium Level 4.6 MEQ/L Chloride Level 106 MEQ/L Carbon Dioxide Level 30.2 MEQ/L Anion Gap 6 MEQ/L Estimat Glomerular Filtration Rate 89 ML/MIN Assessment and Plan Problem List: (1) Myxoma of heart ICD Codes: D15.1 - Benign neoplasm of heart Status: Acute (2) mediansternomy (3) excision of myxoma Assessment and Plan 1) Left atrial myxoma Removal POD #2 2) No significant CAD 3) Mild PHTN secondary to obstructive pathology of myxoma 4) Coumadin per CT surgery 5) Follow up with Dr. Noriega on discharge Adam Grace DO Aug 20, 2017 17:35
[2017-08-20] MEDS: FUROSEMIDE 40 MG/4 ML VIAL IV PUSH SCH (18:37)
[2017-08-20] MEDS: SENNOSIDES 8.6 MG TAB PO SCH (20:56)
[2017-08-20] MEDS ORDERED: ZOLPIDEM TARTRATE 5 MG TAB PO ONE (21:15)
[2017-08-21] VITALS (17 sets, daily range): BP systolic 94–102; BP diastolic 54–56; PULSE 80–100; RESP 16–18; TEMP 98–98.6; O2SAT 93–98
[2017-08-21 05:25] LABS: HEMATOCRIT 23.8 % (35.0-46.0); HEMOGLOBIN 8.1 GM/DL (11.6-15.3); MEAN CELL VOLUME 87.3 FL (80.0-100.0); MEAN CORPUSCULAR HEMOGLOBIN 29.8 PG (27.0-34.0); MEAN CORPUSCULAR HGB CONC 34.1 % (32.0-36.0); MEAN PLATELET VOLUME 8.5 FL (7.0-11.0); PLATELET COUNT 124 TH/MM3 (150-450); RED BLOOD COUNT 2.72 MIL/MM3 (4.00-5.30); RED CELL DISTRIBUTION WIDTH 13.2 % (11.6-17.2); WHITE BLOOD COUNT 6.1 TH/MM3 (4.0-11.0)
[2017-08-21 05:40] LABS: INTERNATIONAL NORMALIZED RATIO 1.1 RATIO; PROTHROMBIN TIME - PATIENT 10.7 SEC (9.8-11.6)
[2017-08-21 05:58] LABS: BICARBONATE 28.5 MEQ/L (21.0-32.0); CALCIUM 8.4 MG/DL (8.5-10.1); CREATININE 0.66 MG/DL (0.50-1.00)
[2017-08-21] MEDS: PANTOPRAZOLE SOD 40 MG DELAYED RELEASE TAB PO SCH (06:13)
[2017-08-21] MEDS: oxyCODONE/ACETAMINOPHEN 5 MG/325 MG TAB PO PRN (06:13)
--- NOTE | 2017-08-21 06:25 | RADRPT ---
EXAM DATE/TIME: 08/21/2017 04:56 [facility] COMPARISON: CHEST SINGLE AP, August 19, 2017, 3:44. INDICATIONS : Shortness of breath, possible pulmonary disease. MEDICAL HISTORY : Cardiovascular disease. SURGICAL HISTORY : CABG. ENCOUNTER: Subsequent ACUITY: 4 - 6 days PAIN SCORE: 0/10 LOCATION: Bilateral chest FINDINGS: Interval removal of right chest tube. No evidence of pneumothorax. Right internal jugular catheter tip at the cavoatrial junction. Patchy infiltrates at the left lung base stable. Right lung is irwin r. CONCLUSION: Stable patchy left basilar infiltrates. Quinton Miller MD on August 21, 2017 at 6:22 Board Certified Radiologist. This report was verified electronically.
[2017-08-21] MEDS: INSULIN ASPART SUPPLEMENTAL SCALE SQ SCH ×2 (07:28→10:38)
[2017-08-21] MEDS: MAGNESIUM HYDROXIDE SUSP 30 ML CUP PO SCH (09:00)
[2017-08-21] MEDS: POLYETHYLENE GLYCOL 17 GM PKG PO SCH (09:00)
[2017-08-21] MEDS: DOCUSATE SODIUM 100 MG CAP PO SCH (09:00)
[2017-08-21] MEDS: MULTIVITAMINS/MINERALS THERAPEUTIC TAB PO SCH (09:47)
[2017-08-21] MEDS: ESCITALOPRAM OXALATE 10 MG TAB PO SCH (09:48)
[2017-08-21] MEDS: FUROSEMIDE 40 MG/4 ML VIAL IV PUSH SCH (09:49)
[2017-08-21] MEDS: ATORVASTATIN 10 MG TAB PO SCH (09:49)
[2017-08-21] MEDS: SODIUM CHLORIDE 0.9% FLUSH 10 ML FLUSH IV FLUSH SCH (09:49)
[2017-08-21] MEDS: ASPIRIN 81 MG CHEW TAB PO SCH (09:49)
--- NOTE | 2017-08-21 11:15 | HHI.PR ---
Subjective Remarks Follow up left atrial myxoma 08/19/17-patient seen and examined; s/p excision of left atrial myxoma 08/18/17; she was seating in the chair and complains of sternum pain along with some shortness of breath. Afebrile 08/20/17-patient seen and examined; complains of SOB but no chest pain. Afebrile. states she has been ambulated 08/21/17-patient seen and examined, chest tube was removed yesterday and patient states she's feeling better. Only complains of incisional pain otherwise stable Objective Vitals Vital Signs Date Time Temp Pulse Resp B/P (MAP) Pulse Ox O2 Delivery O2 Flow Rate FiO2 08/21/17 10:00 84 08/21/17 09:00 84 08/21/17 08:00 88 08/21/17 08:00 98.0 88 18 94/56 (69) 98 08/21/17 08:00 95 Room Air 08/21/17 07:13 20 08/21/17 07:00 86 08/21/17 06:00 82 08/21/17 05:55 98.6 100 16 99/54 (69) 95 08/21/17 05:00 80 08/21/17 04:00 80 08/21/17 03:22 96 Room Air 08/21/17 03:00 84 08/21/17 02:00 85 08/21/17 01:00 84 08/21/17 00:00 82 08/20/17 23:00 84 08/20/17 23:00 96 Room Air 08/20/17 23:00 98.9 82 18 108/55 (72) 82 08/20/17 22:00 84 08/20/17 21:00 86 08/20/17 20:00 98.9 82 18 106/53 (70) 83 08/20/17 20:00 98 08/20/17 20:00 95 Room Air 08/20/17 19:00 88 08/20/17 18:29 95 Room Air 08/20/17 18:00 82 08/20/17 17:00 80 08/20/17 16:00 98.3 82 20 102/52 (69) 96 08/20/17 16:00 82 08/20/17 15:00 83 08/20/17 14:00 78 08/20/17 13:00 78 08/20/17 12:00 82 08/20/17 11:35 98.4 80 18 101/51 (68) 96 08/20/17 11:34 95 Room Air I/O 08/20/17 08/20/17 08/20/17 08/21/17 08/21/17 08/21/17 07:00 15:00 23:00 07:00 15:00 23:00 Intake Total 700 ml 1050 ml 480 ml Output Total 570 ml 600 ml 1450 ml Balance 130 ml 450 ml -970 ml Intake Oral 600 ml 1050 ml 480 ml IV Total 100 ml Output Urine Total 450 ml 600 ml 1450 ml Chest Tube Drainage Total 120 ml # Voids 1 # Bowel Movements 0 1 0 Result Diagram: 08/21/17 0510 08/21/17 0510 Objective Remarks GENERAL: NAD SKIN: Warm and dry. HEAD: Normocephalic. EYES: No scleral icterus. No injection or drainage. NECK: Supple, trachea midline. No JVD or lymphadenopathy. CARDIOVASCULAR: Regular rate and rhythm without murmurs, gallops, or rubs. sternum dressing in place RESPIRATORY: Breath sounds equal bilaterally. No accessory muscle use. GASTROINTESTINAL: Abdomen soft, non-tender, nondistended. MUSCULOSKELETAL: No cyanosis, or edema. BACK: Nontender without obvious deformity. No CVA tenderness. 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 Continue with current treatment Hyperlipidemia continue Rosuvastatin Depression continue escitalopram Insomnia continue Zolpidem as needed. Gaudencio Patten MD Aug 21, 2017 11:15
--- NOTE | 2017-08-21 12:27 | PD.CARD.PN ---
Subjective Subjective Remarks Up in the chair No complaints Chest tubes out Objective Medications Current Medications Medications (Trade) Dose Ordered Sig/Melody Route Start Time Stop Time Status Last Admin (Lipitor) 10 mg DAILY PO 08/15/17 09:00 08/21/17 09:49 (Pill Splitter) 1 ea UNSCH PRN OTHER 08/14/17 17:45 (Lexapro) 20 mg DAILY PO 08/16/17 09:00 08/21/17 09:48 (NS Flush) 2 ml BID IV FLUSH 08/18/17 21:00 08/21/17 09:49 (NS Flush) 2 ml UNSCH PRN IV FLUSH 08/18/17 11:15 (Aspirin Chew) 81 mg DAILY PO 08/19/17 09:00 08/21/17 09:49 (Protonix) 40 mg DAILY@06 PO 08/19/17 06:00 08/21/17 06:13 (Tylenol) 650 mg Q4H PRN PO 08/19/17 11:00 (Percocet 5-325 Mg) 1 tab Q3H PRN PO 08/18/17 11:15 08/21/17 06:13 (Zofran Inj) 4 mg Q6H PRN IV PUSH 08/18/17 11:15 08/19/17 05:51 (Apresoline Inj) 10 mg Q4H PRN IV PUSH 08/18/17 11:15 (Duoneb Neb) 1 ampule Q2HR NEB PRN NEB 08/18/17 11:15 (Colace) 100 mg BID PO 08/19/17 21:00 08/19/17 21:34 (Theragran M Tab) 1 tab DAILY PO 08/20/17 09:00 08/21/17 09:47 (Milk Of Magnesia Liq) 30 ml DAILY PO 08/19/17 10:30 (Miralax) 17 gm DAILY PO 08/20/17 09:00 (Senokot) 8.6 mg HS PO 08/19/17 21:00 08/19/17 21:34 (Fleets Enema (Adult)) 118 ml UNSCH PRN RECTAL 08/19/17 09:30 (D50w (Vial) Inj) 50 ml UNSCH PRN IV PUSH 08/19/17 09:30 (Glucagon Inj) 1 mg UNSCH PRN OTHER 08/19/17 09:30 (NovoLOG SUPPLEMENTAL SCALE) 1 ACHS SQ 08/20/17 12:00 (Flu (Quadrivalent) Vaccine Inj) 0.5 ml ONCE ONCE IM 08/23/17 09:00 08/23/17 09:01 (Pneumovax-23 Inj) 25 mcg ONCE ONCE IM 08/23/17 09:00 08/23/17 09:01 (Lasix Inj) 40 mg BID@,18 IV PUSH 08/20/17 18:00 08/21/17 09:49 (Coumadin) 3 mg DAILY@16 PO 08/20/17 16:00 08/20/17 18:36 Vital Signs / I&O Vital Signs Date Time Temp Pulse Resp B/P (MAP) Pulse Ox O2 Delivery O2 Flow Rate FiO2 08/21/17 12:00 88 08/21/17 11:54 98 Room Air 08/21/17 11:54 98.2 88 18 102/54 (70) 98 08/21/17 11:00 86 08/21/17 10:00 84 08/21/17 09:00 84 08/21/17 08:00 88 08/21/17 08:00 98.0 88 18 94/56 (69) 98 08/21/17 08:00 95 Room Air 08/21/17 07:55 93 21 08/21/17 07:13 20 08/21/17 07:00 86 08/21/17 06:00 82 08/21/17 05:55 98.6 100 16 99/54 (69) 95 08/21/17 05:00 80 08/21/17 04:00 80 08/21/17 03:22 96 Room Air 08/21/17 03:00 84 08/21/17 02:00 85 08/21/17 01:00 84 08/21/17 00:00 82 08/20/17 23:00 84 08/20/17 23:00 96 Room Air 08/20/17 23:00 98.9 82 18 108/55 (72) 82 08/20/17 22:00 84 08/20/17 21:00 86 08/20/17 20:00 98.9 82 18 106/53 (70) 83 08/20/17 20:00 98 08/20/17 20:00 95 Room Air 08/20/17 19:00 88 08/20/17 18:29 95 Room Air 08/20/17 18:00 82 08/20/17 17:00 80 08/20/17 16:00 98.3 82 20 102/52 (69) 96 08/20/17 16:00 82 08/20/17 15:00 83 08/20/17 14:00 78 08/20/17 13:00 78 I/O 08/20/17 08/20/17 08/20/17 08/21/17 08/21/17 08/21/17 07:00 15:00 23:00 07:00 15:00 23:00 Intake Total 700 ml 1050 ml 480 ml Output Total 570 ml 600 ml 1450 ml Balance 130 ml 450 ml -970 ml Intake Oral 600 ml 1050 ml 480 ml IV Total 100 ml Output Urine Total 450 ml 600 ml 1450 ml Chest Tube Drainage Total 120 ml # Voids 1 # Bowel Movements 0 1 0 Physical Exam GENERAL: NAD, AAOx3 SKIN: Warm and dry. HEAD: Atraumatic. Normocephalic. EYES: Pupils equal and round. No scleral icterus. No injection or drainage. ENT: No nasal bleeding or discharge. Mucous membranes pink and moist. NECK: Trachea midline. No JVD. CARDIOVASCULAR: Regular rate and rhythm. Sternotomy clean/dry RESPIRATORY: No accessory muscle use. Clear to auscultation. Breath sounds equal bilaterally. GASTROINTESTINAL: Abdomen soft, non-tender, nondistended. Hepatic and splenic margins not palpable. MUSCULOSKELETAL: Extremities without clubbing, cyanosis, or edema. No obvious deformities. NEUROLOGICAL: No focal deficits Laboratory Laboratory Tests Test 08/21/17 05:10 White Blood Count 6.1 TH/MM3 Red Blood Count 2.72 MIL/MM3 Hemoglobin 8.1 GM/DL Hematocrit 23.8 % Mean Corpuscular Volume 87.3 FL Mean Corpuscular Hemoglobin 29.8 PG Mean Corpuscular Hemoglobin Concent 34.1 % Red Cell Distribution Width 13.2 % Platelet Count 124 TH/MM3 Mean Platelet Volume 8.5 FL Prothrombin Time 10.7 SEC Prothromb Time International Ratio 1.1 RATIO Blood Urea Nitrogen 18 MG/DL Creatinine 0.66 MG/DL Random Glucose 95 MG/DL Calcium Level 8.4 MG/DL Sodium Level 140 MEQ/L Potassium Level 4.0 MEQ/L Chloride Level 104 MEQ/L Carbon Dioxide Level 28.5 MEQ/L Anion Gap 8 MEQ/L Estimat Glomerular Filtration Rate 92 ML/MIN Imaging Last 24 hours Impressions Chest X-Ray 08/21/17 0600 Signed Impressions: Service Date/Time: July 04:56 - CONCLUSION: Stable patchy left basilar infiltrates. 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 Noriega on discharge Adam Grace DO Aug 21, 2017 12:27
[2017-08-21] MEDS ORDERED: THERM PO (13:59)
[2017-08-21] MEDS ORDERED: DOCU1CAP39 PO (13:59)
[2017-08-21] MEDS ORDERED: OXYC1TAB63 PO (13:59)
[2017-08-21] MEDS ORDERED: COUM3TAB PO (13:59)
--- NOTE | 2017-08-21 14:28 | HHI.DS ---
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 Patient reports over the last 2 years she has had increasing shortness of breath, for the last several weeks she has had a gurgling sensation when she was lying down, she reports that she now gets short of breath even when brushing her teeth. She was sent by her primary doctor to cardiology for evaluation. 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 She was initially seen by Dr. Noriega in [place], she was referred to [place] to see Dr. Roxanne Grace. Patient currently denies any chest pain. Symptom onset was gradual, symptom severity is moderate to severe. There are no alleviating factors. Symptoms are exacerbated with activity. The patient is been symptomatic for the last two years, she though was related to the weather of deconditioning, but six months ago was worsening until the point three moths ago she was not able to handle small weights or walking, she was seen by PCP and then by Cardiology and sent today for evaluation and Cardiothoracic surgery. Doctor Hodge will perform Median Sternotomy, excision of left atrial Myxoma. scheduled for 08/18/17 CBC/BMP: 08/21/17 0510 08/21/17 0510 Significant Findings Laboratory Tests Test 08/19/17 04:42 08/20/17 04:30 08/21/17 05:10 Red Blood Count 2.91 MIL/MM3 (4.00-5.30) 2.82 MIL/MM3 (4.00-5.30) 2.72 MIL/MM3 (4.00-5.30) Hemoglobin 8.5 GM/DL (11.6-15.3) 8.4 GM/DL (11.6-15.3) 8.1 GM/DL (11.6-15.3) Hematocrit 25.8 % (35.0-46.0) 24.9 % (35.0-46.0) 23.8 % (35.0-46.0) Platelet Count 122 TH/MM3 (150-450) 123 TH/MM3 (150-450) 124 TH/MM3 (150-450) Random Glucose 149 MG/DL (74-106) Calcium Level 7.9 MG/DL (8.5-10.1) 8.1 MG/DL (8.5-10.1) 8.4 MG/DL (8.5-10.1) Neutrophils (%) (Auto) 72.8 % (16.0-70.0) Monocytes (%) (Auto) 9.0 % (0.0-8.0) Imaging Last Impressions Chest X-Ray 08/21/17 0600 Signed Impressions: Service Date/Time: July 04:56 - CONCLUSION: Stable patchy left basilar infiltrates. Quinton Miller MD Carotid Artery Ultrasound 08/14/17 0000 Signed Impressions: Service Date/Time: July 21:21 - CONCLUSION: Within normal limits. No significant carotid plaque or narrowing on either side. Javier Barrera MD PE at Discharge GENERAL: NAD SKIN: Warm and dry. HEAD: Normocephalic. EYES: No scleral icterus. No injection or drainage. NECK: Supple, trachea midline. No JVD or lymphadenopathy. CARDIOVASCULAR: Regular rate and rhythm without murmurs, gallops, or rubs. sternum dressing in place RESPIRATORY: Breath sounds equal bilaterally. No accessory muscle use. GASTROINTESTINAL: Abdomen soft, non-tender, nondistended. MUSCULOSKELETAL: No cyanosis, or edema. BACK: Nontender without obvious deformity. No CVA tenderness. Hospital Course While in the hospital, patient was treated for: Myxoma of heart Appreciate input from cardiothoracic surgery s/p excision of left atrial myxoma by CTS Started Coumadin 08/20/17--Will need Coumadin x 6 weeks Cardiac Catheterization did not found significant Coronary artery disease. Chest tube was eventually removed PT was consulted Pain management was provided accordingly Hyperlipidemia Treated with Rosuvastatin Depression Treated with escitalopram Insomnia Zolpidem as needed. Pt Condition on Discharge: Good Discharge Disposition: Discharge Home Discharge Time: > 30 minutes Discharge Instructions DIET: Follow Instructions for: Heart Healthy Diet Activities you can perform: Regular-No Restrictions Follow up Referrals: Cardiology - [address] Adria Noriega [address], [place] [address] PCP Follow-up - 2 Weeks with Britney Pratt MD SNF[facility]/ with [facility]: [phone] Surgical - 2 Weeks with Ann Shepard New Medications: Docusate Sodium (Dok) 100 Mg Cap 100 MG PO BID for Constipation, #60 CAP 0 Refills Multiple Vitamins W/ Minerals (Thera M Plus) 1 Tab 1 TAB PO DAILY for multi vitamin, #30 TAB 2 Refills Oxycodone HCl/Acetaminophen (Oxycodone-Acetaminophen 5-325) 5 Mg-325 Mg Tablet 1 TAB PO Q4HR PRN for PAIN SCALE 1 TO 5, #40 TAB 0 Refills Warfarin (Coumadin) 3 Mg Tab 3 MG PO DAILY@16 for Blood Clot Prevention, #30 TAB 2 Refills Continued Medications: Aspirin DR (Aspirin DR) 81 Mg Tabdr 81 MG PO DAILY, TAB 0 Refills Escitalopram (Escitalopram) 5 Mg Tab 5 MG PO DAILY, #30 TAB 0 Refills Estradiol (Estrace) 1 Mg Tab 1 MG PO DAILY for Estrogen Supplements, #30 TAB 0 Refills Furosemide (Lasix) 20 Mg Tab 20 MG PO DAILY, #30 TAB 0 Refills Progesterone Micronized (Progesterone Micronized) 100 Mg Cap 100 MG PO DAILY, #30 CAP 0 Refills Progesterone Micronized (Progesterone Micronized) 200 Mg Cap 200 MG PO HS for Endometrial hyperplasia, #12 CAP 0 Refills Rosuvastatin (Rosuvastatin) 5 Mg Tab 5 MG PO DAILY for Cholesterol Management, #30 TAB 0 Refills Zolpidem (Ambien) 5 Mg Tab 5 MG PO HS PRN for INSOMNIA, TAB 0 Refills Discontinued Medications: Hydrocodone-Acetaminophen (Hydrocodone-Acetaminophen) 5-325 mg Tab 1 TAB PO Q6H PRN for PAIN, TAB 0 Refills Gaudencio Patten MD Aug 21, 2017 14:28
[2017-08-23] MEDS ORDERED: PNEUMOCOCCAL POLYVALENT INJ 25 MCG/0.5 ML SYR IM ONE (09:00)
[2017-08-23] MEDS ORDERED: INFLUENZA VIRUS VACCINE (QUADRIVALENT) 0.5 ML SYR IM ONE (09:00)
== END 2017-08-21 15:15 | disposition home health service (06) | DRG 229 ==
LOC: NEPE 10:43 → NEDA 12:45 → HCIS 16:20 → HCVI 08-17 21:59 → HCPC 08-19 12:00
PROVIDERS: ADMIT Hospitalist; ATTEND Hospitalist
PROC: 4A023N8 Measurement of Cardiac Sampling and Pressure, Bilateral, Percutaneous Approach (ICD-10-PCS; 2017-08-15)
PROC: B2111ZZ Fluoroscopy of Multiple Coronary Arteries using Low Osmolar Contrast (ICD-10-PCS; 2017-08-15)
PROC: 5A1221Z Performance of Cardiac Output, Continuous (ICD-10-PCS; 2017-08-18)
PROC: B246ZZ4 Ultrasonography of Right and Left Heart, Transesophageal (ICD-10-PCS; 2017-08-18)
PROC: 02B70ZZ Excision of Left Atrium, Open Approach (ICD-10-PCS; principal; 2017-08-18 07:23)
PROC: 02U508Z Supplement Atrial Septum with Zooplastic Tissue, Open Approach (ICD-10-PCS; 2017-08-18 07:23)
DX: D15.1 Benign neoplasm of heart (principal); I27.20 Pulmonary hypertension, unspecified; I50.9 Heart failure, unspecified; I95.9 Hypotension, unspecified; I08.3 Combined rheumatic disorders of mitral, aortic and tricuspid valves; J98.11 Atelectasis; F32.9 Major depressive disorder, single episode, unspecified; E78.5 Hyperlipidemia, unspecified; G47.00 Insomnia, unspecified; F41.9 Anxiety disorder, unspecified; K57.90 Diverticulosis of intestine, part unspecified, without perforation or abscess without bleeding; M48.00 Spinal stenosis, site unspecified; H35.30 Unspecified macular degeneration
CPT/HCPCS: 71045; 76937; 80048; 80053; 81001; 82550; 82552; 82810; 82948; 83036; 83735; 83880; 84484; 85025; 85027; 85610; 85730; 86850; 86900; 86901; 86920; 87641; 88304; 88305; 93005; 93318; 93460; 93880; 94002; 94010; 94150; 94640; 94664; 94667; 94668; 96374; C1769; C1893; J0131; J0690; J1265; J1644; J1815; J1817; J1885; J1940; J2060; J2150; J2250; J2370; J2405; J2720; J2930; J3010; J3370; J3475; J3480; J7040; J7050; J7120; P9045; P9047; Q9967